=== PATIENT | female | born 1930 | race Caucasian/White ===

== ENCOUNTER → 2016-07-30 | Outpatient (CLI) | payer MEDICARE, BC ==
--- NOTE | 2016-07-30 10:25 | FL ---
ESOPHOGRAM. HISTORY: Dysphagia Esophagram was performed per the single technique. The patient swallowed thin liquid barium without difficulty or delay. Esophageal peristalsis and motility demonstrates tertiary contractions compatible with presbyesophag us. There is no evidence for filling defect, mass or diverticulum. Moderate fixed hiatal hernia. Subsequently single contrast cervical esophagram was performed which fails demonstrate evidence for a spiration penetration or mass. IMPRESSION: 1.Moderate fixed hiatal hernia.
== END | disposition home or self-care (01) ==
LOC: RADFLWHC 09:36
PROVIDERS: ATTEND Family Medicine
DX: K44.9 Diaphragmatic hernia without obstruction or gangrene (principal); R13.10 Dysphagia, unspecified
CPT/HCPCS: 74220

== ENCOUNTER 2016-08-15 12:53 | Emergency (ER) | payer MEDICARE, BC ==
--- NOTE | 2016-08-15 14:23 | ED ---
Fall HPI - General Chief Complaint: Fall Stated Complaint: FALL Time Seen by Provider: 08/15/16 13:39 Source: patient, EMS, RN notes reviewed Mode of arrival: EMS Limitations: no limitations - History of Present Illness Initial Comments: 86-year-old female presents emergency Department chief complaint fall. Patient states that she was reaching for something cover and which she fell backwards. She states there is no loss conscious. Patient went of headache she states she has a lump on the right side of her head. Patient states she does take aspirin no Plavix or any other blood thinners. Patient states that she did have some right ankle pain notes not painful at this time. Denies any hip pain or any back pain. Patient states she had some mild neck pain which is resolved. Patient is brought to emergency department via EMS. Family states that she is acting appropriate and has no other complaints. - Related Data Home Medications Medication Instructions Recorded Confirmed Cholecalciferol [Vitamin D3] 2,000 unit PO DAILY 01/24/16 08/15/16 Multivit-Min/FA/Lycopene/Lut 1 tab PO DAILY 01/24/16 08/15/16 [Centrum Silver Tablet] Vit C/E/Zn/Coppr/Lutein/Zeaxan 1 tab PO BID 01/24/16 08/15/16 [Preservision Areds 2 Softgel] Pantoprazole [Protonix] 40 mg PO HS 03/20/16 08/15/16 Aspirin 650 mg PO DAILY 08/15/16 08/15/16 Escitalopram Oxalate [Lexapro] 20 mg PO HS 08/15/16 08/15/16 Metoprolol Succinate (ER) [Toprol 50 mg PO DAILY 08/15/16 08/15/16 XL] Metoprolol Succinate [Toprol XL] 25 mg PO HS 08/15/16 08/15/16 Allergies Allergy/AdvReac Type Severity Reaction Status Date / Time iodine Allergy Unknown Verified 08/15/16 14:08 Penicillins Allergy Unknown Verified 08/15/16 14:08 shellfish derived [Shellfish] Allergy Unknown Verified 08/15/16 14:08 Review of Systems ROS Statement: Those systems with pertinent positive or pertinent negative responses have been documented in the HPI. ROS Other: All systems not noted in ROS Statement are negative. Past Medical History Past Medical History: Atrial Fibrillation, Cancer, Hypertension Additional Past Medical History / Comment(s): lung ca, meniere's, fracture to rt shoulder History of Any Multi-Drug Resistant Organisms: None Reported Past Surgical History: Appendectomy, Breast Surgery, Ear Surgery Additional Past Surgical History / Comment(s): left lower lobectomy, ovarian cyst, shoulder replacement Past Anesthesia/Blood Transfusion Reactions: No Reported Reaction Past Psychological History: No Psychological Hx Reported Smoking Status: Former smoker Past Alcohol Use History: None Reported Past Drug Use History: None Reported - Past Family History Father Family Medical History: Myocardial Infarction ([place]) Additional Family Medical History / Comment(s): father passed from an acute heart attack in his 70's Mother Family Medical History: Cancer Additional Family Medical History / Comment(s): mother passed at 34 with uterine cancer General Exam General appearance: alert, in no apparent distress Head exam: Present: atraumatic, normocephalic. Absent: normal inspection ( Hematoma noted to the right occipital region) Eye exam: Present: normal appearance, PERRL, EOMI. Absent: scleral icterus, conjunctival injection, periorbital swelling ENT exam: Present: normal exam, normal oropharynx, mucous membranes moist, TM's normal bilaterally, normal external ear exam Neck exam: Present: normal inspection. Absent: tenderness, meningismus, full ROM (Patient c-collar), lymphadenopathy Respiratory exam: Present: normal lung sounds bilaterally. Absent: respiratory distress, wheezes, rales, rhonchi, stridor Cardiovascular Exam: Present: regular rate, normal rhythm, normal heart sounds. Absent: systolic murmur, diastolic murmur, rubs, gallop, clicks GI/Abdominal exam: Present: soft, normal bowel sounds. Absent: distended, tenderness, guarding, rebound, rigid Extremities exam: Present: normal inspection, full ROM, tenderness (Minimal tenderness right ankle, right heel), normal capillary refill. Absent: pedal edema, joint swelling, calf tenderness Back exam: Present: normal inspection, full ROM. Absent: tenderness, muscle spasm, paraspinal tenderness, vertebral tenderness Neurological exam: Present: alert, oriented X3, CN II-XII intact, reflexes normal. Absent: motor sensory deficit Skin exam: Present: warm, dry, intact, normal color. Absent: rash Course Vital Signs 08/15/16 13:09 Temperature 96.9 F L Pulse Rate 76 Respiratory 16 Rate Blood Pressure 157/90 O2 Sat by Pulse 97 Oximetry Medical Decision Making - Medical Decision Making 86-year-old female presents emergency department for fall. Patient CT shows no acute abnormality. Patient's x-ray of her pelvis that show some constipation in the uterine region into needs a follow-up ultrasound or CT. Patient will follow with primary care physician for this. Patient x-ray of the lower extremity right ankle shows no acute abnormality. Disposition Clinical Impression: Fall, Head injury, Right ankle injury Disposition: HOME SELF-CARE Condition: Stable Instructions: Fall Prevention for Older Adults (ED), Head Injury (ED) Additional Instructions: Please return to the Emergency Department if symptoms worsen or any other concerns. Please follow-up with her primary care physician to schedule either a CT or ultrasound of the pelvic region. Time of Disposition: 15:19
--- NOTE | 2016-08-15 14:33 | CT ---
EXAMINATION TYPE: CT brain cspine wo con DATE OF EXAM: 08/15/2016 2:23 PM COMPARISON: Previous study dated 12/22/2015 HISTORY: Fall TECHNIQUE: Helical acquisition through the brain and cervical spine was obtained without intravenous contrast. The data was reformatted in axial, coronal and sagittal projections. CT DLP: 1295.50 mGycm Automated exposure control for dose reduction was used. FINDINGS: BRAIN: There are generalized changes of sulcal prominence and ventriculomegaly, compatible with atrop hic change. There is diffuse periventricular white matter lucency, compatible with white matter ische fabiola change. There is opacification of the right hemithorax. Prevertebral soft tissues are normal. There is anterolisthesis of C3 on C4. Alignment is otherwise maintained. Atlantoaxial relationships a re normal. There is diffuse uncovertebral joint disease most marked at C5-6 and C6-7. There is diffus e facet arthropathy. No acute fracture is identified. IMPRESSION: 1. NO ACUTE INTRACRANIAL ABNORMALITY. 2. ATROPHIC CHANGE. 3. CHRONIC WHITE MATTER ISCHEMIC CHANGE. 4. DEGENERATIVE CHANGES WITHIN THE CERVICAL SPINE. 5. NO ACUTE OSSEOUS LESION. 6. OPACIFICATION OF THE VISUALIZED PORTIONS OF THE RIGHT HEMITHORAX.
--- NOTE | 2016-08-15 15:09 | XR ---
EXAMINATION TYPE: XR pelvis AP view DATE OF EXAM: 08/15/2016 3:01 PM CLINICAL HISTORY: Generalized pelvic pain after fall injury. TECHNIQUE: A single AP view of the pelvis is obtained. COMPARISON: CT abdomen pelvis March 24, 2016. FINDINGS: The osseous structures are demineralized. There is no acute fracture/dislocation evident i n the pelvis. The sacroiliac joints appear symmetric and unremarkable. There is moderate to severe j oint space loss and spurring in the right hip joint with subchondral cystic change redemonstrated. Mo derate joint space loss without prominent spurring left hip joint is redemonstrated. There are opacif ied diverticula from recent swallow study seen in the visualized left and sigmoid colon. Gas and rect um is suspected. IMPRESSION: There is no acute fracture or dislocation in the pelvis. Note is made of abnormal promin ent central low-density in uterus for postmenopausal female on comparison CT, advise nonemergent pelv ic ultrasound follow-up or correlation.
--- NOTE | 2016-08-15 15:10 | XR ---
EXAMINATION TYPE: XR ankle complete RT DATE OF EXAM: 08/15/2016 3:00 PM CLINICAL HISTORY: Generalized pain after fall injury. TECHNIQUE: Frontal, lateral and oblique images of the right ankle are obtained. COMPARISON: None. FINDINGS: Osseous structures are demineralized. There is no acute fracture/dislocation evident in th e right ankle. Small inferior calcaneal spur is present. The ankle mortise appears within normal limi ts. The overlying soft tissue appears unremarkable. IMPRESSION: There is no acute fracture or dislocation in the right ankle.
[2016-08-15 15:30] VITALS: BP 168/80; PULSE 95; RESP 18; TEMP 97
== END 2016-08-15 15:32 | disposition home or self-care (01) ==
LOC: EC 12:53
DX: S09.90XA Unspecified injury of head, initial encounter (principal); S99.911A Unspecified injury of right ankle, initial encounter; W19.XXXA Unspecified fall, initial encounter; M54.2 Cervicalgia; Z79.82 Long term (current) use of aspirin; Z79.899 Other long term (current) drug therapy; I10 Essential (primary) hypertension; Z88.0 Allergy status to penicillin; Z91.013 Allergy to seafood; Z91.048 Other nonmedicinal substance allergy status; Z87.891 Personal history of nicotine dependence
CPT/HCPCS: 70450; 72125; 72170; 99284

== ENCOUNTER → 2016-08-24 | Outpatient (CLI) | payer MEDICARE, BC ==
[2016-08-24 10:01] LABS: Calcium 9.3 mg/dL (8.4-10.2); Total Protein 6.5 g/dL (6.3-8.2)
[2016-08-24 10:08] LABS: Potassium 3.1 mmol/L (3.5-5.1)
--- NOTE | 2016-08-24 10:10 | XR ---
EXAMINATION TYPE: XR chest 2V DATE OF EXAM: 08/24/2016 9:44 AM COMPARISON: 04/07/2016 HISTORY: Shortness of breath TECHNIQUE: Frontal and lateral views of the chest are obtained. FINDINGS: Scattered senescent parenchymal changes noted. Hyperinflation compatible with COPD. Stable pleural pa renchymal density throughout the left hemithorax. No evidence for infiltrate. No evidence for atelectasis. Heart size is enlarged. Mediastinal structures are stable and grossly unremarkable. No evidence for hilar prominence. Degenerative changes dorsal spine. IMPRESSION: 1. No evidence for acute pulmonary disease.
== END | disposition home or self-care (01) ==
LOC: LABWHC1 09:08
PROVIDERS: ATTEND Internal Medicine Cardiovascular Disease
DX: R06.02 Shortness of breath (principal); I50.40 Unspecified combined systolic (congestive) and diastolic (congestive) heart failure; R11.2 Nausea with vomiting, unspecified
CPT/HCPCS: 36415; 71020; 80053; 83880

== ENCOUNTER 2016-08-25 18:48 | Inpatient (IN) | payer MEDICARE, BC ==
[2016-08-25] MEDS ORDERED: SODIUM CHLORIDE 0.9% 1,000 ML IV STA (19:33)
--- NOTE | 2016-08-25 19:37 | ED ---
Nausea/Vomiting/Diarrhea HPI - General Chief complaint: Nausea/Vomiting/Diarrhea Stated complaint: N V D Time Seen by Provider: 08/25/16 19:01 Source: patient, RN notes reviewed Mode of arrival: EMS Limitations: no limitations - History of Present Illness Initial comments: Patient is an 86-year-old female presents to the emergency room for evaluation of shortness of breath, nausea and hallucinations. Patient's daughter is present with patient. Patient's daughter states that patient has been having issues with abdominal pain and "gagging" for the past few months. Patient's daughter states the patient has been following up with her primary care provider for this issue has been placed on different medications. Patient's daughter states that patient has had an endoscopy with no significant findings. Patient's daughter does admit that patient has a hiatal hernia that cannot be operated on, due to her age. Patient's daughter states that patient has not been eating anything for the past week. Patient's daughter states the patient has lost a lot of weight. Patient's daughter stated that patient has been complaining of intermittent chest pain and shortness of breath so she had blood work done yesterday as well as a chest x-ray. Patient's daughter states that patient was complaining of worsening shortness of breath today so they thought she should be evaluated in the emergency room. Patient also states that she has been seeing "figures". Patient states that she sees people walking in and out of her room and she goes reach her hand out to them and they disappear. Patient's daughter states that this has been going on for the past few weeks. Patient's daughter states that patient has been placed on various medications for this issue. Patient's daughter states that she started new medication about 3 days ago and has not been helping with the hallucinations. Patient denies pain or burning during urination, trouble urinating or blood in urine. Patient denies any current abdominal pain. Patient denies any current chest pain. Patient states she feels slightly short of breath. Patient does have a history of COPD. Patient denies currently smoking. Patient denies fevers or chills. - Related Data Home Medications Medication Instructions Recorded Confirmed Cholecalciferol [Vitamin D3] 2,000 unit PO DAILY 01/24/16 08/25/16 Multivit-Min/FA/Lycopene/Lut 1 tab PO DAILY 01/24/16 08/25/16 [Centrum Silver Tablet] Citalopram Hydrobromide [CeleXA] 40 mg PO DAILY 08/25/16 08/25/16 Cyanocobalamin (Vitamin B-12) 1,000 mcg PO DAILY 08/25/16 08/25/16 [Vitamin B-12] Gabapentin [Neurontin] 300 mg PO BID 08/25/16 08/25/16 Ibuprofen [Motrin] 800 mg PO Q6H PRN 08/25/16 08/25/16 SUMAtriptan SUCCINATE [Imitrex] 50 mg PO DAILY PRN 08/25/16 08/25/16 Temazepam [Restoril] 15 mg PO HS 08/25/16 08/25/16 Allergies Allergy/AdvReac Type Severity Reaction Status Date / Time iodine Allergy Unknown Verified 08/25/16 19:03 Penicillins Allergy Unknown Verified 08/25/16 19:03 shellfish derived [Shellfish] Allergy Unknown Verified 08/25/16 19:03 Review of Systems ROS Statement: Those systems with pertinent positive or pertinent negative responses have been documented in the HPI. ROS Other: All systems not noted in ROS Statement are negative. Past Medical History Past Medical History: Atrial Fibrillation, Cancer, Dementia, Hypertension Additional Past Medical History / Comment(s): lung ca, meniere's, fracture to rt shoulder History of Any Multi-Drug Resistant Organisms: None Reported Past Surgical History: Appendectomy, Breast Surgery, Ear Surgery Additional Past Surgical History / Comment(s): left lower lobectomy, ovarian cyst, shoulder replacement Past Anesthesia/Blood Transfusion Reactions: No Reported Reaction Past Psychological History: No Psychological Hx Reported Smoking Status: Former smoker Past Alcohol Use History: None Reported Past Drug Use History: None Reported - Past Family History Father Family Medical History: Myocardial Infarction ([place]) Additional Family Medical History / Comment(s): father passed from an acute heart attack in his 70's Mother Family Medical History: Cancer Additional Family Medical History / Comment(s): mother passed at 34 with uterine cancer General Exam - General Exam Comments Initial Comments: Sitting in exam room in no acute distress. Limitations: no limitations General appearance: alert, in no apparent distress Head exam: Present: atraumatic, normocephalic, normal inspection Eye exam: Present: normal appearance ENT exam: Present: normal exam Neck exam: Present: normal inspection Respiratory exam: Present: decreased breath sounds (left lung). Absent: respiratory distress Cardiovascular Exam: Present: irregular rhythm GI/Abdominal exam: Present: soft, normal bowel sounds. Absent: distended, tenderness, guarding, rebound, rigid Extremities exam: Present: normal inspection Back exam: Present: normal inspection Neurological exam: Present: alert, oriented X3, CN II-XII intact, normal gait Psychiatric exam: Present: normal affect, normal mood Skin exam: Present: warm, dry, intact, normal color. Absent: rash Course Vital Signs 08/25/16 08/25/16 08/25/16 19: 20:03 20:46 Temperature 96.9 F L Pulse Rate 98 88 88 Respiratory 18 20 20 Rate Blood Pressure 154/95 145/58 147/88 O2 Sat by Pulse 90 L 94 L 98 Oximetry 08/25/16 22:31 Temperature 98.0 F Pulse Rate 93 Respiratory 18 Rate Blood Pressure 129/82 O2 Sat by Pulse 97 Oximetry Medical Decision Making - Medical Decision Making Patient is 86-year-old female presents to the emergency room for evaluation of shortness of breath and nausea. Labs significant for hypokalemia. Patient will be given potassium. Case discussed with Dr. Villanueva. Given patient's history and symptoms will admit patient for further evaluation of shortness of breath and hyperkalemia. Dr. Villanueva spoke with Dr. Ward who agreed to admit patient. Plan discussed with patient and her family. - Lab Data Result diagrams: 08/25/16 19:08/25/16 19:01 Lab Results 08/25/16 08/25/16 08/25/16 Range/Units 19: 19: 19: WBC 5.6 (3.8-10.6) k/uL RBC 3.94 (3.80-5.40) m/uL Hgb 12.2 (11.4-16.0) gm/dL Hct 37.8 (34.0-46.0) % MCV 95.9 (80.0-100.0) fL MCH 30.9 (25.0-35.0) pg MCHC 32.3 (31.0-37.0) g/dL RDW 15.7 H (11.5-15.5) % Plt Count 220 (150-450) k/uL Neutrophils % 58 % Lymphocytes % 29 % Monocytes % 5 % Eosinophils % 5 % Basophils % 1 % Neutrophils # 3.2 (1.3-7.7) k/uL Lymphocytes # 1.6 (1.0-4.8) k/uL Monocytes # 0.3 (0-1.0) k/uL Eosinophils # 0.3 (0-0.7) k/uL Basophils # 0.0 (0-0.2) k/uL PT (9.0-12.0) sec INR (<1.1) APTT (22.0-30.0) sec Sodium 141 (137-145) mmol/L Potassium 2.6 L* (3.5-5.1) mmol/L Chloride 101 (98-107) mmol/L Carbon Dioxide 29 (22-30) mmol/L Anion Gap 11 mmol/L BUN 18 H (7-17) mg/dL Creatinine 0.91 (0.52-1.04) mg/dL Est GFR (MDRD) Af Amer >60 (>60 ml/min/1.73 sqM) Est GFR (MDRD) Non-Af 59 (>60 ml/min/1.73 sqM) Glucose 84 (74-99) mg/dL Calcium 8.9 (8.4-10.2) mg/dL Magnesium 1.9 (1.6-2.3) mg/dL Total Bilirubin 1.4 H (0.2-1.3) mg/dL AST 17 (14-36) U/L ALT 15 (9-52) U/L Alkaline Phosphatase 66 (38-126) U/L Total Creatine Kinase 21 L (30-135) U/L CK-MB (CK-2) 0.3 (0.0-2.4) ng/mL CK-MB (CK-2) Rel Index 1.4 Troponin I <0.012 (0.000-0.034) ng/mL NT-Pro-B Natriuret Pep pg/mL Total Protein 6.3 (6.3-8.2) g/dL Albumin 3.0 L (3.5-5.0) g/dL Amylase 57 (30-110) U/L Lipase 39 (23-300) U/L 08/25/16 08/25/16 Range/Units 19:01 19:01 WBC (3.8-10.6) k/uL RBC (3.80-5.40) m/uL Hgb (11.4-16.0) gm/dL Hct (34.0-46.0) % MCV (80.0-100.0) fL MCH (25.0-35.0) pg MCHC (31.0-37.0) g/dL RDW (11.5-15.5) % Plt Count (150-450) k/uL Neutrophils % % Lymphocytes % % Monocytes % % Eosinophils % % Basophils % % Neutrophils # (1.3-7.7) k/uL Lymphocytes # (1.0-4.8) k/uL Monocytes # (0-1.0) k/uL Eosinophils # (0-0.7) k/uL Basophils # (0-0.2) k/uL PT 11.8 (9.0-12.0) sec INR 1.2 (<1.1) APTT 30.7 H (22.0-30.0) sec Sodium (137-145) mmol/L Potassium (3.5-5.1) mmol/L Chloride (98-107) mmol/L Carbon Dioxide (22-30) mmol/L Anion Gap mmol/L BUN (7-17) mg/dL Creatinine (0.52-1.04) mg/dL Est GFR (MDRD) Af Amer (>60 ml/min/1.73 sqM) Est GFR (MDRD) Non-Af (>60 ml/min/1.73 sqM) Glucose (74-99) mg/dL Calcium (8.4-10.2) mg/dL Magnesium (1.6-2.3) mg/dL Total Bilirubin (0.2-1.3) mg/dL AST (14-36) U/L ALT (9-52) U/L Alkaline Phosphatase (38-126) U/L Total Creatine Kinase (30-135) U/L CK-MB (CK-2) (0.0-2.4) ng/mL CK-MB (CK-2) Rel Index Troponin I (0.000-0.034) ng/mL NT-Pro-B Natriuret Pep 4850 pg/mL Total Protein (6.3-8.2) g/dL Albumin (3.5-5.0) g/dL Amylase (30-110) U/L Lipase (23-300) U/L 08/25/16 21:22 Atrial fibrillation, ventricular rate 90 bpm, QRS duration 86 ms, QT/QTC 414/ 506 ms - Radiology Data Radiology results: report reviewed, image reviewed Disposition Clinical Impression: Hypokalemia, Shortness of breath Disposition: ADMITTED IP TO THIS [facility] Condition: Stable Decision Date: 08/25/16
[2016-08-25 19:52] LABS: Basophils % (A) 1 %; CH 31.5; CHCM 33.1; Eosinophils # (A) 0.3 k/uL (0-0.7); Eosinophils % (A) 5 %; HCT 37.8 % (34.0-46.0); HGB 12.2 gm/dL (11.4-16.0); Luc # (Auto) 0.16; Luc % (Auto) 3; Lymphocytes # (A) 1.6 k/uL (1.0-4.8); Lymphocytes % (A) 29 %; MCH 30.9 pg (25.0-35.0); MCHC 32.3 g/dL (31.0-37.0); MCV 95.9 fL (80.0-100.0); Mean Platelet Volume 7.8; Monocytes # (A) 0.3 k/uL (0-1.0); Monocytes % (A) 5 %; Neutrophils # (A) 3.2 k/uL (1.3-7.7); Neutrophils % (A) 58 %; RBC 3.94 m/uL (3.80-5.40); RDW 15.7 % (11.5-15.5); WBC 5.6 k/uL (3.8-10.6); WBC (Perox) 5.74
[2016-08-25 20:02] LABS: INR 1.2 (<1.1); Partial Thromboplastin Time 30.7 sec (22.0-30.0); Prothrombin Time 11.8 sec (9.0-12.0)
[2016-08-25 20:03] LABS: ALT 15 U/L (9-52); AST 17 U/L (14-36); Alkaline Phosphatase 66 U/L (38-126); Amylase 57 U/L (30-110); Anion Gap 11 mmol/L; Blood Urea Nitrogen 18 mg/dL (7-17); Calcium 8.9 mg/dL (8.4-10.2); Carbon Dioxide 29 mmol/L (22-30); Chloride 101 mmol/L (98-107); Glucose 84 mg/dL (74-99); Magnesium 1.9 mg/dL (1.6-2.3); Non-African American GFR(MDRD) 59 (>60 ml/min/1.73 sqM); Sodium 141 mmol/L (137-145); Total Bilirubin 1.4 mg/dL (0.2-1.3); Total Protein 6.3 g/dL (6.3-8.2)
--- NOTE | 2016-08-25 20:17 | XR ---
EXAMINATION TYPE: XR chest 2V DATE OF EXAM: 08/25/2016 8:11 PM COMPARISON: 08/24/2016 INDICATION: Chest pain TECHNIQUE: Single frontal view of the chest is obtained. FINDINGS: The heart size is enlarged. The pulmonary vasculature is prominent. Diffuse alveolar infiltrate is present. A small left pleural effusion appears to be present. Findings appear stable. Hiatal hernia is present. IMPRESSION: 1. Correlate for congestive heart failure. Continued follow-up is recommended.
[2016-08-25 20:18] LABS: Creatine Kinase 21 U/L (30-135)
[2016-08-25 20:19] LABS: Potassium 2.6 mmol/L (3.5-5.1)
[2016-08-25 20:32] LABS: Creatine Kinase MB 0.3 ng/mL (0.0-2.4); Troponin I <0.012 ng/mL (0.000-0.034)
[2016-08-25] MEDS ORDERED: POTASSIUM CHLORIDE 40 MEQ in WATER FOR INJECTION 1 100ML.BAG IVPB STA (20:34)
[2016-08-25] MEDS ORDERED: POTASSIUM CHLORIDE 40 MEQ, LIDOCAINE 2% INJ 20 MG in SODIUM CHLORIDE 0.9% 250 ML IV STA (20:37)
[2016-08-25] MEDS ORDERED: NALOXONE 0.4 MG/ML 1 ML VIAL IV PRN (20:40)
[2016-08-25] MEDS ORDERED: MORPHINE SULFATE 4 MG/ML SYRINGE IV PRN (20:40)
[2016-08-25] MEDS ORDERED: ONDANSETRON 4 MG/2 ML VIAL IVP PRN (20:40)
[2016-08-25] MEDS ORDERED: ACETAMINOPHEN TAB 325 MG TAB PO PRN (20:40)
[2016-08-25] MEDS ORDERED: IBUPROFEN 800 MG TAB PO PRN (20:48)
[2016-08-25] MEDS ORDERED: SUMAtriptan SUCCINATE 50 MG TAB PO PRN (20:48)
[2016-08-25] MEDS: SODIUM CHLORIDE 0.9% 1,000 ML IV SCH (21:00)
[2016-08-25] MEDS ORDERED: Potassium Replacement Protocol 1 EACH MISC MISCELLANE PRN (23:25)
[2016-08-25 23:43] LABS: Glucose,Whole Blood 77 mg/dL (75-99)
[2016-08-26 00:43] LABS: Appearance,Urine Cloudy (Clear); Bacteria,Urine Many /hpf; Bilirubin,Urine Negative (Negative); Glucose,Urine (UA) Negative (Negative); Ketones,Urine Negative (Negative); Leukocyte Esterase,Urine Moderate (Negative); Mucus,Urine Many /hpf; Nitrite,Urine Negative (Negative); PH, Urine 6.5 (5.0-8.0); Particle Count 114482; Protein,Urine Trace (Negative); RBC,Urine 1 /hpf (0-5); Specific Gravity,Urine 1.012 (1.001-1.035); Squamous Epithelial Cell,Urine 3 /hpf (0-4); UA Billing (MACRO vs. MICRO) MICRO; WBC,Urine 17 /hpf (0-5)
[2016-08-26] MEDS: TEMAZEPAM 15 MG CAP PO SCH ×2 (01:12→20:17)
[2016-08-26] MEDS: GABAPENTIN 300 MG CAP PO SCH ×3 (01:12→20:17)
[2016-08-26 03:48] LABS: Magnesium 1.8 mg/dL (1.6-2.3); Phosphorous 2.8 mg/dL (2.5-4.5)
[2016-08-26 03:50] LABS: Potassium 2.8 mmol/L (3.5-5.1)
[2016-08-26] MEDS: LEVOFLOXACIN 500MG-D5W PMX 500 MG in DEXTROSE/WATER 1 100ML.BAG IVPB SCH ×2 (04:06→20:09)
[2016-08-26] MEDS: POTASSIUM CHLORIDE 10 MEQ, LIDOCAINE 2% INJ 10 MG in SODIUM CHLORIDE 0.9% 100 ML IV SCH ×2 (04:06→05:18)
[2016-08-26] MEDS: CITALOPRAM HYDROBROMIDE 20 MG TAB PO SCH (08:18)
[2016-08-26] MEDS: CHOLECALCIFEROL 1,000 UNIT TAB PO SCH (08:18)
[2016-08-26] MEDS: CYANOCOBALAMIN 500 MCG TAB PO SCH (08:18)
[2016-08-26] MEDS: MULTIVITAMINS, THERA 1 EACH TAB PO SCH (08:18)
[2016-08-26 11:44] LABS: Glucose,Whole Blood 73 mg/dL (75-99)
[2016-08-26] MEDS: SODIUM CHLORIDE 0.9% 1,000 ML IV SCH (12:32)
[2016-08-26 17:23] LABS: Glucose,Whole Blood 67 mg/dL (75-99)
[2016-08-26 17:57] LABS: Glucose,Whole Blood 74 mg/dL (75-99)
[2016-08-26 21:30] LABS: Glucose,Whole Blood 106 mg/dL (75-99)
[2016-08-27] MEDS: SODIUM CHLORIDE 0.9% 1,000 ML IV SCH ×2 (05:01→17:44)
[2016-08-27 07:08] LABS: Glucose,Whole Blood 84 mg/dL (75-99)
[2016-08-27 08:27] LABS: CH 30.7; HCT 36.4 % (34.0-46.0); HDW 2.89; HGB 11.5 gm/dL (11.4-16.0); Hypochromasia Slight; MCH 31.7 pg (25.0-35.0); MCHC 31.7 g/dL (31.0-37.0); MCV 99.9 fL (80.0-100.0); Macrocytosis Slight; Mean Platelet Volume 7.8; RBC 3.64 m/uL (3.80-5.40); RDW 15.8 % (11.5-15.5); WBC 5.8 k/uL (3.8-10.6)
[2016-08-27 08:36] LABS: Anion Gap 8 mmol/L; Blood Urea Nitrogen 18 mg/dL (7-17); Calcium 9.1 mg/dL (8.4-10.2); Carbon Dioxide 28 mmol/L (22-30); Chloride 107 mmol/L (98-107); Glucose 82 mg/dL (74-99); Non-African American GFR(MDRD) 55 (>60 ml/min/1.73 sqM); Potassium 3.3 mmol/L (3.5-5.1); Sodium 143 mmol/L (137-145)
--- NOTE | 2016-08-27 08:47 | HP ---
DATE OF ADMISSION: 08/26/2016 This is a pleasant, 86-year-old white female who was admitted for problems with 3 days of burning during urination, trouble urination, confusion, increasing level of consciousness with hallucinations. The patient was recently started on Seroquel at bedtime for hallucinations, which seem to be a complication of her dementia. She has been having intermitting complaints of gagging due to a hiatal hernia which is unrepairable because of advanced age. Patient's only been on 3 days of the Seroquel. Her past medical history is significant for dementia, congestive heart failure, hypertension, atrial fibrillation, lung cancer, Meniere's disease with falls, fracture of her right humerus. PAST SURGICAL HISTORY: Breast surgery, appendectomy, left lower lobectomy, ovarian cyst, shoulder replacement. SOCIAL: Former smoker. Denies any alcohol or drugs. REVIEW OF SYSTEMS: Unable to obtain secondary to the patient's confusion. HOME MEDICATIONS: 1. Vitamin D. 2. Centrum Silver. 3. Celexa 40 mg once daily. 4. Vitamin B 1000 once daily. 5. Neurontin 300 b.i.d. 6. Motrin 800 q.6. 7. Imitrex 50 once daily. 8. Restoril 15 at bedtime. Allergies to IODINE, PENICILLINS, and SHELLFISH. Family history of father of a heart attack. Mother had cancer of the uterus. PHYSICAL EXAMINATION: Patient is awake. She is answering questions, she is confused at times to place and time. HEAD: Normocephalic and atraumatic. Neck is supple. No JVD. LUNGS: Clear to auscultation. HEART: Irregular irregularity with controlled ventricular response. GI: Abdominal was soft, nontender. EXTREMITIES: No cyanosis, clubbing or jaundice. NEUROLOGIC: Cranial nerves 2 through 12 are grossly intact without any lateralizing deficits. IMPRESSION: 1. Acute urinary tract infection. 2. Significant hypokalemia. 3. Alzheimer's dementia with visual hallucinations, recently placed on Seroquel but has discontinued only after 3 days. 4. Hiatal hernia with progressive problems with gagging/dysphagia. Patient was unable to anticoagulate because of gastrointestinal bleeding. PLAN: Admit patient. IV antibiotics. She may need psychiatric consultation. Will see how she does in the hospital. Will replace her potassium. Will continue to follow patient's overall guarded prognosis.
[2016-08-27] MEDS: CHOLECALCIFEROL 1,000 UNIT TAB PO SCH (08:49)
[2016-08-27] MEDS: CYANOCOBALAMIN 500 MCG TAB PO SCH (08:50)
[2016-08-27] MEDS: CITALOPRAM HYDROBROMIDE 20 MG TAB PO SCH (08:51)
[2016-08-27] MEDS: GABAPENTIN 300 MG CAP PO SCH ×2 (08:51→20:58)
--- NOTE | 2016-08-27 09:46 | P.CRDCN ---
History of Present Illness Consult date: 08/27/16 Consult reason: atrial fibrillation History of present illness: 86-year-old lady with history of chronic atrial fibrillation and mild dementia is admitted to hospital with a combination of problems including nausea vomiting and burning urination and episodes of hallucinations. Patient denies chest pain difficulty in breathing dizziness or syncope. She has not been taking anticoagulant. Based on her history I think she is a poor risk candidate for long-term anticoagulation. The time of my evaluation she is not in heart failure. Her confusional state is currently being evaluated. I reviewed her EKG. I'm going to obtain a 2-D echo to document her LV function. Review of Systems Constitutional: Denies chills. Denies fever. Eyes: Denies blurred vision. Denies pain. Ears, nose, mouth and throat: Denies headache. Denies sore throat. Cardiovascular: Denies chest pain. Denies shortness of breath. Respiratory: Denies cough. Gastrointestinal: Has nausea vomiting and diarrhea Musculoskeletal: Denies myalgias. Has joint pains Integumentary: Denies pruritus. Denies rash. Neurological: Denies numbness. Denies weakness. Psychiatric: Denies anxiety. Denies depression. Patient has hallucinations confusion and memory impairment Endocrine: Denies fatigue. Denies weight change. Genitourinary: Denies burning, hematuria, frequency of urination. Hematological: No anemia or excess bleeding. Past Medical History Past Medical History: Atrial Fibrillation, Cancer, Dementia, Hypertension Additional Past Medical History / Comment(s): lung ca, meniere's, fracture to rt shoulder History of Any Multi-Drug Resistant Organisms: None Reported Past Surgical History: Appendectomy, Breast Surgery, Ear Surgery Additional Past Surgical History / Comment(s): left lower lobectomy, ovarian cyst, shoulder replacement Past Anesthesia/Blood Transfusion Reactions: No Reported Reaction Past Psychological History: No Psychological Hx Reported Smoking Status: Former smoker Past Alcohol Use History: None Reported Past Drug Use History: None Reported - Past Family History Father Family Medical History: Myocardial Infarction ([place]) Additional Family Medical History / Comment(s): father passed from an acute heart attack in his 70's Mother Family Medical History: Cancer Additional Family Medical History / Comment(s): mother passed at 34 with uterine cancer Medications and Allergies Home Medications Medication Instructions Recorded Confirmed Type Cholecalciferol [Vitamin D3] 2,000 unit PO DAILY 01/24/16 08/25/16 History Multivit-Min/FA/Lycopene/Lut 1 tab PO DAILY 01/24/16 08/25/16 History [Centrum Silver Tablet] Citalopram Hydrobromide [CeleXA] 40 mg PO DAILY 08/25/16 08/25/16 History Cyanocobalamin (Vitamin B-12) 1,000 mcg PO DAILY 08/25/16 08/25/16 History [Vitamin B-12] Gabapentin [Neurontin] 300 mg PO BID 08/25/16 08/25/16 History Ibuprofen [Motrin] 800 mg PO Q6H PRN 08/25/16 08/25/16 History SUMAtriptan SUCCINATE [Imitrex] 50 mg PO DAILY PRN 08/25/16 08/25/16 History Temazepam [Restoril] 15 mg PO HS 08/25/16 08/25/16 History Allergies Allergy/AdvReac Type Severity Reaction Status Date / Time iodine Allergy Unknown Verified 08/25/16 19:03 Penicillins Allergy Unknown Verified 08/25/16 19:03 shellfish derived [Shellfish] Allergy Unknown Verified 08/25/16 19:03 Physical Exam Vitals: Vital Signs Temp Pulse Resp BP Pulse Ox 08/27/16 07:00 97.7 F 90 18 132/79 98 08/26/16 22:38 97.4 F L 81 16 98/62 94 L 08/26/16 16:05 97.3 F L 88 18 103/66 99 08/26/16 16:00 83 16 Intake and Output 08/26/16 08/27/16 08/27/16 22:59 06:59 14:59 Output Total 100 100 Balance -100 -100 Output: Urine 100 100 Other: Voiding Method Bedside Commode Diaper # Voids 1 1 # Bowel Movements 1 Weight 56.5 kg 56 kg General: The patient is awake and alert, in no distress, and does not appear acutely ill. Skin: Skin is warm and dry and no rashes or lesions are noted. Eye: Pupils are equal, round and reactive to light, extra-ocular movements are intact; there is normal conjunctiva bilaterally. Ears, nose, mouth and throat: There are moist mucous membranes and no oral lesions. Neck: The neck is supple, there is no tenderness or JVD. Cardiovascular: Irregular systolic murmur at the left lower sternal border Respiratory: Lungs are clear to auscultation, respirations are non-labored, breath sounds are equal. Gastrointestinal: Soft, non-distended, non-tender abdomen without masses or organomegaly noted. There is no rebound or guarding present. Bowel sounds are unremarkable. Back: There is no tenderness to palpation in the midline. There is no obvious deformity. Musculoskeletal: Normal ROM, no tenderness, There is no pedal edema. There is no calf tenderness or swelling. Extremities: No edema. Vascular: Femoral pulse is normal. Posterior tibial pulses are normal .Dorsalis pedis is palpable. Neurological: CN II-XII intact. There are no obvious motor or sensory deficits. Speech is normal. Psychiatric: Cooperative, recently confused Results 08/27/16 08:03 08/27/16 08:03 CBC 08/27/16 Range/Units 08:03 WBC 5.8 (3.8-10.6) k/uL RBC 3.64 L (3.80-5.40) m/uL Hgb 11.5 (11.4-16.0) gm/dL Hct 36.4 (34.0-46.0) % Plt Count 204 (150-450) k/uL Comprehensive Metabolic Panel 08/26/16 08/27/16 Range/Units 08:37 08:03 Sodium 143 (137-145) mmol/L Potassium 3.6 3.3 L (3.5-5.1) mmol/L Chloride 107 (98-107) mmol/L Carbon Dioxide 28 (22-30) mmol/L BUN 18 H (7-17) mg/dL Creatinine 0.96 (0.52-1.04) mg/dL Glucose 82 (74-99) mg/dL Calcium 9.1 (8.4-10.2) mg/dL Current Medications Generic Name Dose Route Start Last Admin Trade Name Freq PRN Reason Stop Dose Admin Acetaminophen 650 mg 08/25/16 20:40 Tylenol Tab PO Q6HR PRN Mild Pain or Fever > 100.5 Cholecalciferol 2,000 unit 08/26/16 09:00 08/27/16 08:49 Vitamin D3 PO 2,000 unit DAILY KALEN Administration Citalopram Hydrobromide 40 mg 08/26/16 09:00 08/27/16 08:51 Celexa PO 40 mg DAILY KALEN Administration Cyanocobalamin 1,000 mcg 08/26/16 09:00 08/27/16 08:50 Vitamin B-12 PO 1,000 mcg DAILY KALEN Administration Gabapentin 300 mg 08/25/16 23:50 08/27/16 08:51 Neurontin PO 300 mg BID KALEN Administration Sodium Chloride 1,000 mls @ 75 mls/hr 08/25/16 20:45 08/27/16 05:01 Saline 0.9% IV Not Given .[id number] KALEN Levofloxacin 500 mg/ IV 100 mls @ 100 mls/hr 08/26/16 03:15 08/26/16 20:09 Solution IVPB 100 mls/hr HS KALEN Administration Ibuprofen 800 mg 08/25/16 20:48 Motrin PO Q6H PRN Pain Miscellaneous Information 1 each 08/25/16 23:25 Potassium Per Protocol MISCELLANE DAILY PRN Per Protocol Protocol Morphine Sulfate 4 mg 08/25/16 20:40 Morphine Sulfate (Inj) IV Q4HR PRN Severe Pain Multivitamins 1 each 08/26/16 12:00 08/26/16 08:18 Theragran PO 1 each DAILY@1200 KALEN Administration Naloxone HCl 0.2 mg 08/25/16 20:40 Narcan IV Q2M PRN Opioid Reversal Ondansetron HCl 4 mg 08/25/16 20:40 Zofran IVP Q8HR PRN Nausea And Vomiting Sumatriptan Succinate 50 mg 08/25/16 20:48 Imitrex PO DAILY PRN Migraine Headache Temazepam 15 mg 08/25/16 21:00 08/26/16 20:17 Restoril PO 15 mg HS KALEN Administration Intake and Output 08/26/16 08/27/16 08/27/16 22:59 06:59 14:59 Output Total 100 100 Balance -100 -100 Output: Urine 100 100 Other: Voiding Method Bedside Commode Diaper # Voids 1 1 # Bowel Movements 1 Weight 56.5 kg 56 kg 08/27/16 08:03 08/27/16 08:03 EKG Interpretations (text) Atrial fibrillation with nonspecific ST-T wave changes Assessment and Plan Plan: Chronic atrial fibrillation with controlled ventricular rate Confusional state Patient is not a candidate for long-term anticoagulation. Heart rate is fairly well controlled. I will obtain a 2-D echo to assess LV function.
[2016-08-27 11:50] LABS: Glucose,Whole Blood 91 mg/dL (75-99)
[2016-08-27] MEDS: MULTIVITAMINS, THERA 1 EACH TAB PO SCH (12:12)
[2016-08-27] MEDS ORDERED: Potassium Replacement Protocol 1 EACH MISC MISCELLANE PRN (13:55)
--- NOTE | 2016-08-27 14:01 | P.PN ---
Subjective Principal diagnosis: Urinary tract infection Patient is an 86-year-old white female admitted with evidence of increased confusion with hallucinations, urinary tract infection, possible congestive heart failure with elevated BNP and complaints of gagging secondary to unrepairable hiatal hernia. Cardiology has been consulted for possible congestive heart failure, echocardiogram pending. Psychiatry consult requested , recommendations pending. Upon examination, patient is oriented and alert. Patient reports that she has been short of breath for one week and that it was getting hard for her to get in and out of bed without experiencing shortness of breath. Patient complains of leg swelling for approximately one week. Patient currently denies chills, fevers, nausea, vomiting, shortness of breath, chest pain, or abdominal pain. Patient reports good appetite. Patient was able to get up to the commode with assist. Patient had a bowel movement this morning. Afebrile. No evidence of leukocytosis. Potassium is 3.3 this morning. Urine cultures pending. Objective - Vital Signs Vital signs: Vital Signs Temp 97.7 F 08/27/16 07:00 Pulse 90 08/27/16 07:00 Resp 18 08/27/16 07:00 BP 132/79 08/27/16 07:00 Pulse Ox 98 08/27/16 07:00 Intake & Output 08/26/16 08/27/16 08/27/16 18:59 06:59 18:59 Intake Total 619 Output Total 200 100 100 Balance 419 -100 -100 Weight 56.5 kg 56 kg 56 kg Intake: Intake, IV Titration 619 Amount Sodium Chloride 0.9% 1, 619 000 ml @ 75 mls/hr IV . [id number] [facility] Rx#:[id number] Output: Urine 200 100 100 Other: Voiding Method Bedside Commode Bedside Commode Bedside Commode Diaper Diaper # Voids 2 1 1 # Bowel Movements 1 1 - Exam GENERAL: Pt awake and alert, well-appearing, well-nourished, and in no acute distress. HEAD: Atraumatic, normocephalic. EYES: Pupils equal, round, and reactive to light, extraocular movements intact, sclera anicteric, conjunctiva are normal. ENT: Oropharynx clear without exudates. Moist mucous membranes. Tongue smooth, pink, no lesions, protrudes in midline. NECK:Normal range of motion, supple without lymphadenopathy or JVD. LUNGS: Breath sounds clear to auscultation bilaterally. Irregularly irregular. No wheezes, rales, or rhonchi. HEART: Heart S1, S2, no S3 or S4. No murmurs, rubs or gallops. ABDOMEN: Soft, nontender, nondistended, normoactive bowel sounds. No guarding, no rebound. No masses or organomegaly appreciated. EXTREMITIES: palpable peripheral pulses. 1+ edema to bilateral lower extremities. No calf tenderness. NEUROLOGICAL: Pt oriented to person, place and time. No focal deficits noted. Strength and sensation grossly intact. PSYCH: Normal mood, normal affect. SKIN: Warm, dry, intact. Normal turgor. No rashes or lesions. - Labs CBC & Chem 7: 08/27/16 08:03 08/27/16 08:03 Labs: Abnormal Lab Results - Last 24 Hours (Table) 08/26/16 08/26/16 08/26/16 Range/Units 17:21 17:47 21:09 RBC (3.80-5.40) m/uL RDW (11.5-15.5) % Potassium (3.5-5.1) mmol/L BUN (7-17) mg/dL POC Glucose (mg/dL) 67 L 74 L 106 H (75-99) mg/dL 08/27/16 08/27/16 Range/Units 08:03 08:03 RBC 3.64 L (3.80-5.40) m/uL RDW 15.8 H (11.5-15.5) % Potassium 3.3 L (3.5-5.1) mmol/L BUN 18 H (7-17) mg/dL POC Glucose (mg/dL) (75-99) mg/dL Microbiology - Last 24 Hours (Table) 08/26/16 18:06 Urine Culture - Preliminary Urine,Clean Catch Assessment and Plan Plan: Impression and plan: 1. Urinary tract infection, urine cultures pending. Continue IV antibiotics. 2. Hypokalemia. Replace potassium per protocol. Will check serum magnesium. 3. Alzheimer's dementia with visual hallucinations, recently placed on Seroquel but was discontinued after 3 days. Consult has been initiated to psychiatric service, recommendations pending. 4. Hiatal hernia with progressive problems with gagging and dysphagia. Speech therapy has been consulted. 5. Persistent atrial fibrillation, ventricular rate controlled. Patient is not on any anticoagulation secondary to history of GI bleed. 6. Shortness of breath, present on admission, with evidence of elevated BNP and bilateral leg swelling. Chest x-ray with evidence of diffuse alveolar infiltrate and small left pleural effusion suggestive of possible CHF. Cardiology has seen and evaluated patient. No plans for diuretics at this time. Echocardiogram pending. 7. Hypertension. 8. History of lung cancer with left lower lobectomy. 9. History of Mnire's disease. 10. History of nicotine dependence. 11. Gait dysfunction. Patient uses walker at home. Consult physical therapy. 12. DVT prophylaxis. Continue FELISA hose to bilateral lower extremities. 13. GI prophylaxis. Continue Pepcid. 14. Repeat CBC and BMP in a.m. The above impression and plan have been discussed and directed by Dr. Ward. Sparkle ALY acting as scribe for Dr. Ward.
[2016-08-27] MEDS ORDERED: POTASSIUM CHLORIDE 10 MEQ, LIDOCAINE 2% INJ 10 MG in SODIUM CHLORIDE 0.9% 100 ML IV SCH (15:00)
[2016-08-27 17:12] LABS: Glucose,Whole Blood 87 mg/dL (75-99)
[2016-08-27 20:51] LABS: Glucose,Whole Blood 90 mg/dL (75-99)
[2016-08-27] MEDS: TEMAZEPAM 15 MG CAP PO SCH (20:59)
[2016-08-27] MEDS: QUEtiapine 25 MG TAB PO SCH (20:59)
[2016-08-27] MEDS: LEVOFLOXACIN 250 MG TAB PO SCH (20:59)
[2016-08-27 23:24] VITALS: RESP 16
[2016-08-28] MEDS: SODIUM CHLORIDE 0.9% 1,000 ML IV SCH ×2 (05:47→09:42)
[2016-08-28 07:21] LABS: Glucose,Whole Blood 80 mg/dL (75-99)
[2016-08-28 07:28] LABS: Basophils % (A) 0 %; CH 30.4; CHCM 30.1; Eosinophils # (A) 0.3 k/uL (0-0.7); Eosinophils % (A) 7 %; HCT 33.2 % (34.0-46.0); HGB 10.1 gm/dL (11.4-16.0); Hypochromasia Marked; Luc # (Auto) 0.11; Luc % (Auto) 3; Lymphocytes # (A) 1.2 k/uL (1.0-4.8); Lymphocytes % (A) 30 %; MCH 31.1 pg (25.0-35.0); MCHC 30.6 g/dL (31.0-37.0); MCV 101.7 fL (80.0-100.0); Macrocytosis Slight; Monocytes # (A) 0.3 k/uL (0-1.0); Monocytes % (A) 8 %; Neutrophils # (A) 1.9 k/uL (1.3-7.7); Neutrophils % (A) 51 %; RBC 3.26 m/uL (3.80-5.40); RDW 15.6 % (11.5-15.5); WBC 3.8 k/uL (3.8-10.6); WBC (Perox) 3.95
[2016-08-28 07:42] LABS: Magnesium 1.8 mg/dL (1.6-2.3); Potassium 3.8 mmol/L (3.5-5.1)
[2016-08-28] MEDS ORDERED: Magnesium Replacement Protocol 1 EACH MISC MISCELLANE PRN (08:28)
[2016-08-28] MEDS ORDERED: POTASSIUM CHLORIDE ORAL LIQUID 40 MEQ/30 ML CUP PO ONE (08:30)
[2016-08-28] MEDS: CITALOPRAM HYDROBROMIDE 20 MG TAB PO SCH (09:27)
[2016-08-28] MEDS: CHOLECALCIFEROL 1,000 UNIT TAB PO SCH (09:27)
[2016-08-28] MEDS: CYANOCOBALAMIN 500 MCG TAB PO SCH (09:27)
[2016-08-28] MEDS: FAMOTIDINE 20 MG TAB PO SCH (09:28)
[2016-08-28] MEDS: GABAPENTIN 300 MG CAP PO SCH ×2 (09:28→20:22)
[2016-08-28] MEDS: MAGNESIUM SULFATE-D5W PMX 1 GM in DEXTROSE/WATER 1 100ML.BAG IVPB SCH ×2 (09:42→11:53)
--- NOTE | 2016-08-28 10:17 | P.PN ---
Subjective Principal diagnosis: Urinary tract infection Patient is an 86-year-old white female admitted with evidence of increased confusion with hallucinations, possible urinary tract infection, possible congestive heart failure with elevated BNP and complaints of gagging secondary to unrepairable hiatal hernia. Cardiology has been consulted for possible congestive heart failure, echocardiogram pending. Psychiatry consult requested , recommendations pending. Upon examination, patient is sitting up in a chair. Nursing staff reports that patient was a 2 person assist to the chair this morning and patient was dragging her left foot. Nursing staff also reports that patient's left arm is weaker than her right arm. Nursing staff reports that per family, patient does have left-sided weakness but it appears worse than usual. Patient reports improvement in breathing. Patient currently denies headache, chills, fevers, nausea, vomiting, increased shortness of breath , chest pain, or abdominal pain. Patient reports good appetite. Objective - Vital Signs Vital signs: Vital Signs Temp 97.3 F L 08/28/16 08:25 Pulse 92 08/28/16 08:25 Resp 16 08/28/16 08:25 BP 115/77 08/28/16 08:25 Pulse Ox 98 08/28/16 08:25 Intake & Output 08/27/16 08/28/16 08/28/16 18:59 06:59 18:59 Intake Total 200 800 Output Total 100 Balance 100 800 Weight 56 kg 56 kg Intake: IV 600 Sodium Chloride 0.9% 1, 600 000 ml @ 75 mls/hr IV . [id number] [facility] Rx#:[id number] Oral 200 200 Output: Urine 100 Other: Voiding Method Bedside Commode Bedside Commode Diaper Diaper # Voids 1 1 - Exam GENERAL: Pt awake and alert, well-appearing, well-nourished, sitting up in a chair in no acute distress. HEAD: Atraumatic, normocephalic. EYES: Pupils equal, round, and reactive to light, extraocular movements intact, sclera anicteric, conjunctiva are normal. ENT: Oropharynx clear without exudates. Moist mucous membranes. Tongue smooth, pink, no lesions, protrudes in midline. NECK:Normal range of motion, supple without lymphadenopathy or JVD. LUNGS: Breath sounds clear to auscultation bilaterally. No wheezes, rales, or rhonchi. HEART: Heart S1, S2, no S3 or S4. Irregularly irregular. No murmurs, rubs or gallops. ABDOMEN: Soft, nontender, nondistended, normoactive bowel sounds. No guarding, no rebound. No masses or organomegaly appreciated. EXTREMITIES: Palpable peripheral pulses. 1+ edema to bilateral lower extremities. No calf tenderness. NEUROLOGICAL: Pt oriented to person, place and time. No focal deficits noted. Decreased strength noted to left upper and lower extremity. PSYCH: Normal mood, normal affect. SKIN: Warm, dry, intact. Normal turgor. No rashes or lesions. - Labs CBC & Chem 7: 08/28/16 06:59 08/28/16 06:59 Labs: Abnormal Lab Results - Last 24 Hours (Table) 08/28/16 08/28/16 Range/Units 06:59 06:59 RBC 3.26 L (3.80-5.40) m/uL Hgb 10.1 L (11.4-16.0) gm/dL Hct 33.2 L (34.0-46.0) % MCV 101.7 H (80.0-100.0) fL MCHC 30.6 L (31.0-37.0) g/dL RDW 15.6 H (11.5-15.5) % Chloride 110 H (98-107) mmol/L BUN 18 H (7-17) mg/dL Creatinine 1.06 H (0.52-1.04) mg/dL Microbiology - Last 24 Hours (Table) 08/26/16 18:06 Urine Culture - Final Urine,Clean Catch Assessment and Plan Plan: Impression and plan: 1. Possible urinary tract infection ruled out. Urine cultures negative. Continue IV antibiotics. 2. Hypokalemia. Replace potassium per protocol. 3. Alzheimer's dementia with visual hallucinations, recently placed on Seroquel but was discontinued after 3 days. Consult has been initiated to psychiatric service, recommendations pending. 4. Hiatal hernia with progressive problems with gagging and dysphagia. 5. Persistent atrial fibrillation, ventricular rate controlled. Patient is not on any anticoagulation secondary to history of GI bleed. 6. Shortness of breath, present on admission, with evidence of elevated BNP and bilateral leg swelling. Chest x-ray with evidence of diffuse alveolar infiltrate and small left pleural effusion suggestive of possible CHF. Cardiology has seen and evaluated patient. No plans for diuretics at this time. Echocardiogram pending. 7. Hypertension. 8. History of lung cancer with left lower lobectomy. 9. History of Mnire's disease. 10. History of nicotine dependence. 11. Gait dysfunction. Patient uses walker at home. Physical therapy has evaluated patient and is recommending subacute rehab upon discharge. 12. Left-sided weakness without other neurological deficits. Will order CT of brain. 12. DVT prophylaxis. Continue FELISA hose to bilateral lower extremities. 13. GI prophylaxis. Continue Pepcid. 14. Repeat CBC and BMP in a.m. The above impression and plan have been discussed and directed by Dr. Ward. Sparkle ALY acting as scribe for Dr. Ward.
--- NOTE | 2016-08-28 10:29 | ECHOF ---
Referral Reason:afib MEASUREMENTS -------- HEIGHT: 165.1 cm WEIGHT: 55.8 kg BP: 132/79 RVIDd: 3.5 cm (< 3.3) IVSd: 1.4 cm (0.6 - 1.1) LVIDd: 3.0 cm (3.9 - 5.3) LVPWd: 1.3 cm (0.6 - 1.1) IVSs: 1.6 cm LVIDs: 2.2 cm LVPWs: 1.5 cm LA Diam: 2.8 cm (2.7 - 3.8) LAESV Index (A-L): 51.71 ml/m Ao Diam: 3.6 cm (2.0 - 3.7) AV Cusp: 1.4 cm (1.5 - 2.6) MV EXCURSION: 14.273 mm (> 18.000) MV EF SLOPE: 132 mm/s (70 - 150) EPSS: 1.1 cm RAP: 10.00 mmHg RVSP: 50.72 mmHg FINDINGS -------- Atrial fibrillation. This was a technically adequate study. The left ventricular size is normal. There is moderate concentric left ventricular hypertrophy. Overall left ventricular systolic function is mild-moderately impaired with, an EF between 40 - 45 %. Basal inferior LV wall motion is hypokinetic. Mid inferoseptal LV wall motion is hypokinetic. Apical septum LV wall motion is hypokinetic. The right ventricle is mildly enlarged. LA is severely dilated >40 ml/m2 The right atrium is normal in size. Aortic valve is trileaflet and is moderately thickened. Mild mitral annular calcification present. There is trace to mild mitral regurgitation. Mild tricuspid regurgitation present. There is moderate pulmonary hypertension. The right ventricular systolic pressure, as measured by Doppler, is 50.72mmHg. Trace/mild (physiologic) pulmonic regurgitation. The aortic root size is normal. Normal inferior vena cava with less than 50% inspiratory collapse consistent with estimated right atrial pressure of 10 mmHg. There is no pericardial effusion. CONCLUSIONS -------- 1. Atrial fibrillation. 2. LA is severely dilated >40 ml/m2 3. Aortic valve is trileaflet and is moderately thickened. 4. Mild mitral annular calcification present. 5. There is trace to mild mitral regurgitation. 6. Mild tricuspid regurgitation present. 7. There is moderate pulmonary hypertension. 8. The right ventricular systolic pressure, as measured by Doppler, is 50.72mmHg. 9. Trace/mild (physiologic) pulmonic regurgitation. 10. The aortic root size is normal. 11. Normal inferior vena cava with less than 50% inspiratory collapse consistent with estimated right atrial pressure of 10 mmHg. 12. This was a technically adequate study. 13. There is no pericardial effusion. 14. The left ventricular size is normal. 15. There is moderate concentric left ventricular hypertrophy. 16. Overall left ventricular systolic function is mild-moderately impaired with, an EF between 40 - 45 %. 17. Basal inferior LV wall motion is hypokinetic. 18. Mid inferoseptal LV wall motion is hypokinetic. 19. Apical septum LV wall motion is hypokinetic. 20. The right ventricle is mildly enlarged. CUPROUS CHLORIDE OPERATOR: Jada Montgomery RDCS
--- NOTE | 2016-08-28 11:03 | CT ---
EXAMINATION TYPE: CT brain wo con DATE OF EXAM: 08/28/2016 10:41 AM COMPARISON: 08/15/2016 INDICATION: Patient having left sided weakness DLP: 945.5 mGycm, Automated exposure control for dose reduction was used. CONTRAST: None CT of the brain is performed utilizing 3 mm thick sections through the posterior fossa and 3 mm thick sections through the remaining calvarium. Study is performed within 24 hours of arrival to the hosp [facility]. No abnormal hyperdensity is present to suggest an acute intracranial hemorrhage. No mass lesion is evident. No acute infarcts are evident. Periventricular white matter hypodensity is present, most likely on th e basis of chronic white matter ischemic changes. Ventricles and sulci are prominent for the patient age. Paranasal sinuses and mastoid air cells within the [id number] are clear. There is been a prior lef t mastoidectomy. Septal deviation is noted. Hyperostosis frontalis internus, normal variant is presen t. IMPRESSIONS: 1. Atrophy with periventricular white matter ischemic changes. Findings are stable from comparison.
[2016-08-28] MEDS ORDERED: FUROSEMIDE 10 MG/ML 2 ML VIAL IV STA (11:34)
--- NOTE | 2016-08-28 11:34 | P.PN ---
Subjective Patient appears obtunded this morning. There is a daughter at bedside. Patient is not responding to pressures when she does she is responding inappropriately. She remains in atrial fibrillation with controlled ventricular rate. An echocardiogram revealed cardiomyopathy with an ejection fraction of 40-45%. Her prognosis guarded a computed tomography scan of the brain did not reveal any infarct. Patient is not a candidate for long-term anticoagulation because of history of GI bleed. Objective - Vital Signs Vital signs: Vital Signs Temp 97.3 F L 08/28/16 08:25 Pulse 92 08/28/16 08:25 Resp 16 08/28/16 08:25 BP 115/77 08/28/16 08:25 Pulse Ox 98 08/28/16 08:25 Intake & Output 08/27/16 08/28/16 08/28/16 18:59 06:59 18:59 Intake Total 200 800 Output Total 100 Balance 100 800 Weight 56 kg 56 kg Intake: IV 600 Sodium Chloride 0.9% 1, 600 000 ml @ 75 mls/hr IV . [id number] [facility] Rx#:[id number] Oral 200 200 Output: Urine 100 Other: Voiding Method Bedside Commode Bedside Commode Bedside Commode Diaper Diaper Diaper # Voids 1 1 - Exam Patient is unresponsive chest exam reveals diminished air entry with occasional rhonchi heart exam reveals first and second heart sounds are regular rhythm abdomen is soft exam extremities reveals trace edema peripheral pulses are felt - Labs CBC & Chem 7: 08/28/16 06:59 08/28/16 06:59 Labs: Abnormal Lab Results - Last 24 Hours (Table) 08/28/16 08/28/16 Range/Units 06:59 06:59 RBC 3.26 L (3.80-5.40) m/uL Hgb 10.1 L (11.4-16.0) gm/dL Hct 33.2 L (34.0-46.0) % MCV 101.7 H (80.0-100.0) fL MCHC 30.6 L (31.0-37.0) g/dL RDW 15.6 H (11.5-15.5) % Chloride 110 H (98-107) mmol/L BUN 18 H (7-17) mg/dL Creatinine 1.06 H (0.52-1.04) mg/dL Microbiology - Last 24 Hours (Table) 08/26/16 18:06 Urine Culture - Final Urine,Clean Catch Assessment and Plan Plan: Chronic A. fib with controlled ventricular rate Shortness of breath probably secondary to acute acute onset systolic heart failure. Altered mental status could be due to dementia UTI could be due to CVA Prognosis guarded continue with current supportive care I will and the small dose of Lasix and TRISTIAN inhibitor. Blood pressure permitting we will consider adding a beta ramana.
[2016-08-28] MEDS: LISINOPRIL 2.5 MG TAB PO SCH (12:12)
[2016-08-28] MEDS: MULTIVITAMINS, THERA 1 EACH TAB PO SCH (12:13)
[2016-08-28 12:17] LABS: Glucose,Whole Blood 79 mg/dL (75-99)
--- NOTE | 2016-08-28 14:30 | P.CN ---
Psychiatric Consult - . Consult date: 08/28/16 Consult:: IDENTIFYING DATA: Ms. Connolly is an 86-year-old female who has a history of a dementia of the Alzheimer's type. She presented to medicine service with increasing confusion, urinary tract infection, atrial fibrillation and hypokalemia. HISTORY OF PRESENT ILLNESS: Medicine consulted psychiatry because she was experiencing auditory hallucinations and increased agitation. I reviewed the medical record and attempted to interview Mrs. Connolly. She provided little information. She appeared perplexed when I asked her questions about psychiatric symptoms including auditory or visual hallucinations. I reviewed her medication record. Her psychotropic medications include citalopram 40 mg daily, gabapentin 300 mg twice a day, quetiapine 25 mg daily at bedtime and temazepam 15 mg at bedtime. MENTAL STATUS EXAM: She presented as a pale and frail appearing elderly woman resting comfortably in bed. She appeared sedated and complained of feeling tired. She fell asleep during the interview. When I was able to get her attention she made eye contact. She had a flat facial expression. She had marked psychomotor retardation and no abnormal movements. Her speech was not spontaneous and when she spoke her speech had decreased rate, rhythm and volume. Her affect was flat. In response to questions about suicidality she replied "no". She did not appear to understand questions about depressive cognitions such as hopelessness, helplessness and worthlessness. She did not express ideas reference or paranoid ideation. Her thinking was concrete but her associations appeared coherent. She denied current hallucinations and did not appear to be responding to internal stimuli. I administered the [facility] Orientation Memory Concentration test. Her mentation was slow and she had difficulty concentrating and attending to the examination. Her total weighted error score was 14; a total weighted error score greater than 10 is consistent with dementia. She knew the year and month. She was able to repeat the memory phrase "Joe Morales, [address] [place] [address].". She estimated that time correctly within 1 hour of the actual time. She fell asleep as she was counting backwards from 2 to 1. When I woke her she does not remember the task. She was unable to repeat the months of the year in reverse beginning with May. She remembered 2 elements of memory phrase - "Joe Brown." IMPRESSIONS: She is an elderly woman who has an established diagnosis of dementia. She presented to unit with increased confusion and visual hallucinations in the context of urinary tract infection, atrial fibrillation hypokalemia. It is not uncommon to encounter agitation and hallucinations, both auditory and visual, in patients with advanced dementia. The worsening of her mental state is most likely secondary to her multiple medical problems. The prescription of benzodiazepines such as temazepam is usually not recommended an individuals with advanced dementia since benzodiazepines including temazepam further impaircognitive functioning, increased station and increased likelihood of falls. Antipsychotic such as quetiapine may be beneficial in the treatment of behavioral and perceptual disturbances in individual with dementia but the primary approach for the treatment of change in mental status is to address underlying causes. DIAGNOSIS: Brandin. 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 Continue quetiapine at bedtime for sleep and for treatment of nighttime confusions with hallucinations. Titrate quetiapine according to clinical response and side effects. Consider decreasing the dose of citalopram to 20 mg since citalopram causes a dose dependent QT interval prolongation; although 40 milligrams is the usual recommended maximum dose, the elderly a more sensitive to the QT prolongation effects of citalopram. Thank you for this consult. 08/28/16 14:05
--- NOTE | 2016-08-28 16:33 | P.CNNES ---
History of Present Illness Consult date: 08/28/16 Reason for Consult: Patient with left-sided weakness and possible stroke. History of Present Illness: This patient is a 86-year-old right-handed white female who was admitted to hospital with symptoms of urinary tract infection with visual hallucinations. Patient has a history of mild dementia as well as chronic atrial fibrillation. She is unable to take any treatment for the atrial fibrillation as she has a bleeding tendency. On admission she was noted to have visual hallucinations and increased confusion felt to be secondary to her urinary tract infection and worsening dementia. She was admitted to hospital and is been undergoing antibiotic therapy. This morning she was noted to have left arm weakness which appear to be significant according to family members. She did not have this left-sided weakness on initial admission. She was also noted to have slurring of her speech and slight left-sided facial droop. For these reasons neurology was consulted today for further evaluation of stroke. Patient is somewhat somnolent but arousable. Her speech appears to be quite slurred. She follows only simple commands. She does continue to show slight left-sided facial droop. Given this patient's history of chronic atrial fibrillation we have recommended further evaluation to rule out acute stroke. Would recommend MRI of the brain for further assessment. Computed tomography scan of the brain was performed today and revealed only atrophy with periventricular white matter ischemic changes. We have recommended a complete stroke evaluation for the patient. Her overall prognosis at this time remains very guarded. Review of Systems Constitutional: Denies chills, Denies fever Eyes: denies blurred vision, denies pain Ears, nose, mouth and throat: Denies headache, Denies sore throat Cardiovascular: Denies chest pain, Denies shortness of breath Respiratory: Denies cough Gastrointestinal: Denies abdominal pain, Denies diarrhea, Denies nausea, Denies vomiting Genitourinary: Denies dysuria, Denies hematuria Musculoskeletal: Denies myalgias Integumentary: Denies pruritus, Denies rash Neurological: Denies numbness, Denies weakness Psychiatric: Denies anxiety, Denies depression Endocrine: Denies fatigue, Denies weight change Past Medical History Past Medical History: Atrial Fibrillation, Cancer, Dementia, Hypertension Additional Past Medical History / Comment(s): lung ca, meniere's, fracture to rt shoulder History of Any Multi-Drug Resistant Organisms: None Reported Past Surgical History: Appendectomy, Breast Surgery, Ear Surgery Additional Past Surgical History / Comment(s): left lower lobectomy, ovarian cyst, shoulder replacement Past Anesthesia/Blood Transfusion Reactions: No Reported Reaction Past Psychological History: No Psychological Hx Reported Smoking Status: Former smoker Past Alcohol Use History: None Reported Past Drug Use History: None Reported - Past Family History Father Family Medical History: Myocardial Infarction (DE) Additional Family Medical History / Comment(s): father passed from an acute heart attack in his 70's Mother Family Medical History: Cancer Additional Family Medical History / Comment(s): mother passed at 34 with uterine cancer Medications and Allergies Home Medications Medication Instructions Recorded Confirmed Type Cholecalciferol [Vitamin D3] 2,000 unit PO DAILY 01/24/16 08/25/16 History Multivit-Min/FA/Lycopene/Lut 1 tab PO DAILY 01/24/16 08/25/16 History [Centrum Silver Tablet] Citalopram Hydrobromide [CeleXA] 40 mg PO DAILY 08/25/16 08/25/16 History Cyanocobalamin (Vitamin B-12) 1,000 mcg PO DAILY 08/25/16 08/25/16 History [Vitamin B-12] Gabapentin [Neurontin] 300 mg PO BID 08/25/16 08/25/16 History Ibuprofen [Motrin] 800 mg PO Q6H PRN 08/25/16 08/25/16 History SUMAtriptan SUCCINATE [Imitrex] 50 mg PO DAILY PRN 08/25/16 08/25/16 History Temazepam [Restoril] 15 mg PO HS 08/25/16 08/25/16 History QUEtiapine [SEROquel] 25 mg PO HS 08/27/16 08/27/16 History Allergies Allergy/AdvReac Type Severity Reaction Status Date / Time iodine Allergy Unknown Verified 08/25/16 19:03 Penicillins Allergy Unknown Verified 08/25/16 19:03 shellfish derived [Shellfish] Allergy Unknown Verified 08/25/16 19:03 Physical Examination - Vital Signs Vital Signs: Vital Signs Temp Pulse Resp BP Pulse Ox 08/28/16 15:00 97.7 F 95 16 119/69 98 08/28/16 08:25 97.3 F L 92 16 115/77 98 08/27/16 21:45 97.9 F 105 H 16 116/65 97 Intake and Output 08/28/16 08/28/16 08/28/16 06:59 14:59 22:59 Intake Total 600 Balance 600 Intake: IV 600 Sodium Chloride 0.9% 1, 600 000 ml @ 75 mls/hr IV . [id number] [facility] Rx#:[id number] Other: Voiding Method Bedside Commode Bedside Commode Diaper Diaper # Voids 1 2 Weight 56 kg - Constitutional General appearance: average body habitus, cooperative - EENT EENT: mucous membranes moist - Respiratory Respiratory: lungs clear, normal breath sounds - Cardiovascular Cardiovascular: regular rate, normal S1, normal S2 Extremities: no peripheral edema bilaterally - Gastrointestinal Gastrointestinal: normoactive bowel sounds - Integumentary Integumentary: normal - Neurologic Cranial nerve examination: PERRL, EOMI, VFF, V1/V2/V3 grossly intact, tongue midline, intact gag reflex, intact corneal reflex, facial droop (Patient has a left-sided facial droop of upper motor neuron finding.), normal palatal elevation Sensorimotor examination: intact Motor examination - right side: 4/5: biceps, triceps, wrist flexion, wrist extension, adjunct professor of voice, hip flexors, knee extensors, dorsiflexion, toe extension (EHL) , plantarflexion Motor examination - left side: 3/5: biceps, triceps, wrist flexion, wrist extension, adjunct professor of voice, hip flexors, knee extensors, dorsiflexion, toe extension (EHL) , plantarflexion Detailed sensory examination: intact Reflex and gait examination: intact Reflexes: 1+: ankle, bicep, knee, tricep - Musculoskeletal Musculoskeletal: no pain - Psychiatric Psychiatric: depressed, cooperative Results - Laboratory Findings CBC and BMP: 08/28/16 06:59 08/28/16 06:59 Abnormal Lab Findings: Abnormal Labs 08/25/16 08/26/16 08/26/16 21:30 03:24 11:26 RBC Hgb Hct MCV MCHC RDW Potassium 2.8 L* Chloride BUN Creatinine POC Glucose (mg/dL) 73 L Urine Appearance Cloudy H Urine Protein Trace H Ur Leukocyte Esterase Moderate H Urine WBC 17 H Urine Bacteria Many H Urine Mucus Many H 08/26/16 08/26/16 08/26/16 17:21 17:47 21:09 RBC Hgb Hct MCV MCHC RDW Potassium Chloride BUN Creatinine POC Glucose (mg/dL) 67 L 74 L 106 H Urine Appearance Urine Protein Ur Leukocyte Esterase Urine WBC Urine Bacteria Urine Mucus 08/27/16 08/27/16 08/28/16 08:03 08:03 06:59 RBC 3.64 L 3.26 L Hgb 10.1 L Hct 33.2 L MCV 101.7 H MCHC 30.6 L RDW 15.8 H 15.6 H Potassium 3.3 L Chloride BUN 18 H Creatinine POC Glucose (mg/dL) Urine Appearance Urine Protein Ur Leukocyte Esterase Urine WBC Urine Bacteria Urine Mucus 08/28/16 06:59 RBC Hgb Hct MCV MCHC RDW Potassium Chloride 110 H BUN 18 H Creatinine 1.06 H POC Glucose (mg/dL) Urine Appearance Urine Protein Ur Leukocyte Esterase Urine WBC Urine Bacteria Urine Mucus Assessment and Plan (1) Acute encephalopathy Status: Acute Code(s): G93.40 - ENCEPHALOPATHY, UNSPECIFIED (2) Dementia of the Alzheimer's type Status: Acute Code(s): G30.9 - ALZHEIMER'S DISEASE, UNSPECIFIED; F02.80 - DEMENTIA IN OTH DISEASES CLASSD ELSWHR W/O BEHAVRL DISTURB (3) Acute right arterial ischemic stroke, MCA (middle cerebral artery) Status: Acute Code(s): I63.511 - CEREB INFRC D/T UNSP OCCLS OR STENOS OF RIGHT MID CEREB ART (4) Paroxysmal a-fib Status: Acute Code(s): I48.0 - PAROXYSMAL ATRIAL FIBRILLATION Plan: This patient is a 86-year-old female who is being evaluated today for acute left -sided arm weakness and slurred speech. Patient was initially admitted to Hospital on 08/25/2016 for acute urinary tract infection and hallucinations. She has a history of mild dementia. Today she was noted to have left arm weakness. She does have a history of chronic atrial fibrillation but is not a candidate for anticoagulation and she has a bleeding disorder. We have recommended the patient to undergo an MRI of the brain for further evaluation. She had a computed tomography scan of the brain today which failed to reveal any acute changes. We would recommend a carotid Doppler ultrasound as well as this has not been done recently. Her overall prognosis at this time remains very guarded. We have recommended a complete stroke evaluation for the patient. Case was discussed at length with the patient's family member at bedside today. All of their questions were answered. Overall prognosis at this time remains very guarded. She also has underlying encephalopathy with worsening dementia symptoms. We will continue to monitor her progress closely during this admission. Overall prognosis as noted remains very guarded. Time with Patient: Greater than 30
[2016-08-28 17:14] LABS: Glucose,Whole Blood 79 mg/dL (75-99)
--- NOTE | 2016-08-28 20:21 | MR ---
EXAMINATION TYPE: MR brain wo con DATE OF EXAM: 08/28/2016 7:43 PM COMPARISON: CT brain 08/28/2016 HISTORY: 86 year-old female acute right hemispheric stroke. Left-sided weakness. TECHNIQUE: Multiplanar, multisequence images of the brain and brainstem were acquired without IV con trast. Diffusion weighted imaging is performed. Fast brain protocol was utilized. FINDINGS: Artifacts related to patient motion. No evidence for acute infarction, hemorrhage, mass, mass effect, midline shift, herniation, effacemen t of basal cisterns, or extra-axial fluid collection. There is moderate generalized supratentorial volume loss especially with central cerebral atrophy and secondary mild ventriculomegaly as seen on CT. T2/FLAIR weighted sequences moderate to severe patchy and confluent white matter hypodensities in bot h cerebral hemispheres. Major intracranial flow voids are intact. Midline structures demonstrate normal morphology. The craniocervical junction is normal. Mucosal thickening within the ethmoid air cells. Globes are intact. Leftward nasal septal deviation. There is some fluid signal seen in the region of the right mastoid air cells. IMPRESSION: 1. No acute intracranial abnormality seen. 2. Moderate cerebral atrophy and secondary ex vacuo ventriculomegaly. 3. Moderate to severe patchy and confluent T2 bright white matter change likely relating to chronic s mall vessel ischemic disease. 4. Some fluid signal involving the right mastoid air cells could represent retained secretions. Corre late for any mastoid pain to exclude mastoiditis.
[2016-08-28] MEDS: QUEtiapine 25 MG TAB PO SCH (20:22)
[2016-08-28] MEDS: LEVOFLOXACIN 250 MG TAB PO SCH (20:22)
[2016-08-28 21:06] LABS: Glucose,Whole Blood 96 mg/dL (75-99)
--- NOTE | 2016-08-28 21:48 | US ---
EXAMINATION TYPE: US carotid duplex BILAT DATE OF EXAM: 08/28/2016 9:17 PM COMPARISON: NONE CLINICAL HISTORY: right hemispheric stroke. EXAM MEASUREMENTS: RIGHT: Peak Systolic Velocity (PSV) cm/sec ----- Right CCA: 53.7 ----- Right ICA: 74.9 ----- Right ECA: 59.4 ICA/CCA ratio: 1.4 RIGHT: End Diastole cm/sec ----- Right CCA: 10.9 ----- Right ICA: 12.8 ----- Right ECA: 6.3 LEFT: Peak Systolic Velocity (PSV) cm/sec ----- Left CCA: 44.4 ----- Left ICA: 120.0 ----- Left ECA: 41.9 ICA/CCA ratio: 2.7 LEFT: End Diastole cm/sec ----- Left CCA: 8.6 ----- Left ICA: 25.4 ----- Left ECA: 9.2 VERTEBRALS (direction of flow): Right Vertebral: Antegrade Left Vertebral: Antegrade TECHNOLOGIST IMPRESSION: Moderate/severe amount of plaque visualized in bilateral CCAs and bulbs, no elevated velocities. ICA/CCA ratio 2.7 on the left IMPRESSION: There is antegrade flow in the vertebral arteries. There is calcified plaque and signal loss at the carotid artery bifurcations. Lumen is not well evaluated. According to the velocities and images there is at least 50% stenosis at the carotid artery bifurcations. There is calcified plaque and signal loss in both distal common carotid arteries with lumen narrowing of probably 50%. Criteria for Assigning % of Stenosis / Diameter reduction (Estimation based on the indirect measurements of the internal carotid artery velocities (ICA PSV). 1. Normal (no stenosis)=ICA PSV < 125 cm/s: ratio < 2.0: ICA EDV<40 cm/s. 2. Less than 50% stenosis=ICA PSV < 125 cm/s: ratio < 2.0: ICA EDV<40 cm/s. 3. 50 to 69% stenosis=ICA PSV of 125 to 230 cm/s: ration 2.0 ? 4.0: ICA EDV 40-100 cm/s. 4. Greater than 70% stenosis to near occlusion= ICA PSV > 230 cm/s: ratio > 4.0: ICA EDV > 100 cm/s. 5. Near occlusion= ICA PSV velocities may be low or undetectable: variable ratio and ICA EDV. 6. Total occlusion=unable to detect flow.
[2016-08-29 07:19] LABS: Glucose,Whole Blood 86 mg/dL (75-99)
[2016-08-29 08:04] LABS: Basophils % (A) 0 %; CH 30.6; CHCM 30.7; Eosinophils # (A) 0.3 k/uL (0-0.7); Eosinophils % (A) 7 %; HCT 31.7 % (34.0-46.0); HDW 2.83; HGB 9.8 gm/dL (11.4-16.0); Hypochromasia Moderate; Luc # (Auto) 0.14; Luc % (Auto) 3; Lymphocytes # (A) 1.1 k/uL (1.0-4.8); Lymphocytes % (A) 23 %; MCH 31.1 pg (25.0-35.0); MCHC 30.9 g/dL (31.0-37.0); MCV 100.6 fL (80.0-100.0); Macrocytosis Slight; Mean Platelet Volume 8.2; Monocytes # (A) 0.2 k/uL (0-1.0); Monocytes % (A) 5 %; Neutrophils % (A) 62 %; RBC 3.15 m/uL (3.80-5.40); RDW 15.9 % (11.5-15.5); WBC 4.7 k/uL (3.8-10.6); WBC (Perox) 4.86
[2016-08-29 08:19] LABS: Anion Gap 6 mmol/L; Blood Urea Nitrogen 19 mg/dL (7-17); Calcium 8.8 mg/dL (8.4-10.2); Carbon Dioxide 26 mmol/L (22-30); Chloride 110 mmol/L (98-107); Glucose 82 mg/dL (74-99); Magnesium 2.1 mg/dL (1.6-2.3); Non-African American GFR(MDRD) 57 (>60 ml/min/1.73 sqM); Potassium 3.9 mmol/L (3.5-5.1); Sodium 142 mmol/L (137-145)
--- NOTE | 2016-08-29 08:24 | CDI ---
In responding to this query, please exercise your independent professional judgment. The [facility] [employer] Coding Staff and Clinical Documentation Specialists appreciate your assistance in clarifying documentation, maintaining compliance with coding guidelines, accurately documenting patients condition and capturing severity of illness. The fact that a question is asked does not imply that any particular answer is desired or expected. Communication forms are a method of clarifying documentation and are not made part of the Legal Health Record. Thank you in advance for your clarification. Last Revision, August 2015 Dana Winters [address] [facility] [place] [address] Documentation Clarification Form Date: 08/28/2016 4:15:00 PM From: Marissa Prieto Admit Date: 08/25/2016 9:21:00 PM Patient Name: Annmarie Connolly Visit Number: [id number] Discharge Date: Dr. Joe Roque Dementia was documented in your consult on 08/28/16 Patient history/risk factors: Atrial fibrillation, Cancer, Dementia, hypertension Clinical indicators: Present to ED for evaluation of shortness of breath nausea and hallucinations Labs: WBC 5.6, K+ 2.6, UA: Moderate Leukocyte Esterase (urine culture negative) Chest x ray: Correlate for congestive heart failure CT Brain: Atrophy with periventricular white matter ischemic changes. 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 Alzheimers disease (Specify if early (presenile) or late (senile) onset) Other condition or cause of dementia, please specify_ Unable to determine Please document in your progress note in order to capture severity of illness and risk of mortality. Include clinical findings that support your diagnosis. FYI: Press F11 to launch patient chart Place X here if this finding has no clinical significance, is not applicable or if you are not able to provide any additional documentation. MTDD
[2016-08-29] MEDS: CYANOCOBALAMIN 500 MCG TAB PO SCH (08:55)
[2016-08-29] MEDS: CHOLECALCIFEROL 1,000 UNIT TAB PO SCH (08:55)
[2016-08-29] MEDS: MULTIVITAMINS, THERA 1 EACH TAB PO SCH (08:55)
[2016-08-29] MEDS: LISINOPRIL 2.5 MG TAB PO SCH (08:57)
[2016-08-29] MEDS: SODIUM CHLORIDE 0.9% 1,000 ML IV SCH (08:57)
[2016-08-29] MEDS: GABAPENTIN 300 MG CAP PO SCH ×2 (08:58→20:08)
[2016-08-29] MEDS: CITALOPRAM HYDROBROMIDE 20 MG TAB PO SCH (08:58)
[2016-08-29] MEDS: FAMOTIDINE 20 MG TAB PO SCH (08:58)
[2016-08-29 11:29] LABS: Glucose,Whole Blood 93 mg/dL (75-99)
[2016-08-29] MEDS: METOPROLOL TARTRATE 12.5 MG TAB PO SCH ×2 (12:17→20:08)
--- NOTE | 2016-08-29 13:48 | P.PN ---
Subjective Principal diagnosis: Altered mental status Patient is an 86-year-old white female admitted with evidence of increased confusion with hallucinations, possible urinary tract infection, possible congestive heart failure with elevated BNP and complaints of gagging secondary to unrepairable hiatal hernia. Cardiology has been consulted for possible congestive heart failure, echocardiogram with evidence of cardiomyopathy with an ejection fraction of 40-45%. Psychiatry has seen and evaluated patient with recommendations to discontinue temazepam as it may contribute to confusion and impairment of cognitive function, decreased dose of citalopram to 20 mg, and continue quetiapine at bedtime for sleep. Yesterday, neurology was consulted increased left-sided weakness and decreased responsiveness. CT of the brain with no evidence of acute findings. MRI of brain with no evidence of acute intracranial abnormality. This morning, patient is lying in bed. Patient is very difficult to understand as her speech is slurred. Patient is very weak and needs help holding onto a cup. When asked to lift her left arm, patient uses her right arm to lift it. Patient denies headache, chills, fevers, nausea , vomiting, shortness of breath, chest pain, or abdominal pain. At this time, family has requested hospice consult. Objective - Vital Signs Vital signs: Vital Signs Temp 96.9 F L 08/29/16 07:42 Pulse 110 H 08/29/16 07:42 Resp 16 08/28/16 21:00 BP 98/55 08/29/16 07:42 Pulse Ox 98 08/29/16 07:42 Intake & Output 08/28/16 08/29/16 08/29/16 18:59 06:59 18:59 Intake Total 50 Balance 50 Weight 62 kg Intake: Oral 50 Other: Voiding Method Bedside Commode Bedside Commode Bedside Commode Diaper Diaper Diaper # Voids 1 # Bowel Movements 1 1 - Exam GENERAL: Pt awake and alert, lying in bed, appears fatigued. HEAD: Atraumatic, normocephalic. EYES: Pupils equal, round, and reactive to light, extraocular movements intact, sclera anicteric, conjunctiva are normal. ENT: Dry mucous membranes. NECK:Normal range of motion, supple without lymphadenopathy or JVD. LUNGS: Breath sounds clear to auscultation bilaterally. No wheezes, rales, or rhonchi. HEART: Heart S1, S2, no S3 or S4. Irregularly irregular. No murmurs, rubs or gallops. ABDOMEN: Soft, nontender, nondistended, normoactive bowel sounds. No guarding, no rebound. No masses or organomegaly appreciated. EXTREMITIES: Palpable peripheral pulses. 1+ edema to bilateral lower extremities. No calf tenderness. Decreased strength to upper and lower left extremity NEUROLOGICAL: Pt oriented to person. Disoriented to place and time. PSYCH: Poor insight. Poor judgment. SKIN: Warm, dry, intact. Normal turgor. No rashes or lesions. - Labs CBC & Chem 7: 08/29/16 07:29 08/29/16 07:29 Labs: Abnormal Lab Results - Last 24 Hours (Table) 08/29/16 08/29/16 Range/Units 07:29 07:29 RBC 3.15 L (3.80-5.40) m/uL Hgb 9.8 L (11.4-16.0) gm/dL Hct 31.7 L (34.0-46.0) % MCV 100.6 H (80.0-100.0) fL MCHC 30.9 L (31.0-37.0) g/dL RDW 15.9 H (11.5-15.5) % Chloride 110 H (98-107) mmol/L BUN 19 H (7-17) mg/dL Assessment and Plan Plan: Impression and plan: 1. Possible urinary tract infection ruled out. Urine cultures negative. IV antibiotics will be discontinued. 2. Hypokalemia, resolved. 3. Alzheimer's dementia with visual hallucinations, recently placed on Seroquel but was discontinued after 3 days. Consult has been initiated to psychiatric service, recommendations noted. 4. Hiatal hernia with progressive problems with gagging and dysphagia. 5. Persistent atrial fibrillation, ventricular rate controlled. Patient is not on any anticoagulation secondary to history of GI bleed. 6. Shortness of breath, present on admission, suspect secondary to acute systolic heart failure. Cardiology has seen and evaluated patient, recommendations noted. 7. Hypertension. 8. History of lung cancer with left lower lobectomy. 9. History of Mnire's disease. 10. History of nicotine dependence. 11. Gait dysfunction. Patient uses walker at home. Continue physical therapy. 12. Left-sided weakness suspect secondary to acute CVA. Neurology has seen and evaluated patient, recommendations noted. 12. DVT prophylaxis. Continue FELISA hose to bilateral lower extremities. 13. GI prophylaxis. Continue Pepcid. Consult has been initiated to hospice. Await final family decision prior to making discharge plan. The above impression and plan have been discussed and directed by Dr. Ward. Sparkle ALY acting as scribe for Dr. Ward.
--- NOTE | 2016-08-29 19:33 | P.PN ---
Subjective This patient is a 86-year-old female who was seen in neurology consultation yesterday for confusion and left-sided weakness. She was sent for MRI of the brain for further evaluation for acute stroke. MRI of the brain failed to reveal any evidence of acute stroke on diffusion-weighted imaging. MRI does reveal severe white matter ischemic changes as well as cortical atrophy. There was moderate to severe white matter changes suggesting vascular form of dementia for this patient. She was seen by psychiatry yesterday who also feels she has underlying dementia and delirium which is multifactorial. The patient was started on Seroquel as per the recommendations of psychiatry. Patient continues to have episodes of confusion today as well. The results of the MRI of the brain was discussed today with the patient's daughter. Apparently the family is now considering hospice care for this patient at the time of discharge. Patient is more comfortable today and seems to be slightly more awake and alert. As mentioned she likely has some degree of early vascular dementia contributing to her overall confusional state. We will continue close neurological follow-up for this patient during this admission. Her overall prognosis at this time remains guarded. Objective - Vital Signs Vital signs: Vital Signs Temp 97.9 F 08/29/16 15:53 Pulse 99 08/29/16 15:53 Resp 16 08/29/16 15:53 BP 127/72 08/29/16 15:53 Pulse Ox 92 L 08/29/16 15:53 Intake & Output 08/28/16 08/29/16 08/29/16 18:59 06:59 18:59 Intake Total 50 160 Balance 50 160 Weight 62 kg Intake: Intake, IV Titration 160 Amount Sodium Chloride 0.9% 1, 160 000 ml @ 20 mls/hr IV . Q24H [facility] Rx#:[id number] Oral 50 Other: Voiding Method Bedside Commode Bedside Commode Bedside Commode Diaper Diaper Diaper # Voids 1 # Bowel Movements 1 1 - Exam Physical examination: PHYSICAL EXAMINATION: Patient is resting comfortably in bed. VITAL SIGNS: Blood pressure is [127/72]. Heart rate is [90]. Respiration is [16] . Temperature is [97.9]. HEENT: Head is atraumatic, neck is supple, there were no carotid bruits. CHEST: Lungs are clear to auscultation and percussion. CARDIAC: S1, S2 normal rate and rhythm. There is no murmur. ABDOMEN: Soft and nontender. Bowel sounds are present. EXTREMITIES: There is no pedal edema. Peripheral pulses are present. Neurological examination: - Labs CBC & Chem 7: 08/29/16 07:29 08/29/16 07:29 Labs: Abnormal Lab Results - Last 24 Hours (Table) 08/29/16 08/29/16 Range/Units 07:29 07:29 RBC 3.15 L (3.80-5.40) m/uL Hgb 9.8 L (11.4-16.0) gm/dL Hct 31.7 L (34.0-46.0) % MCV 100.6 H (80.0-100.0) fL MCHC 30.9 L (31.0-37.0) g/dL RDW 15.9 H (11.5-15.5) % Chloride 110 H (98-107) mmol/L BUN 19 H (7-17) mg/dL Assessment and Plan (1) Acute encephalopathy Status: Acute Code(s): G93.40 - ENCEPHALOPATHY, UNSPECIFIED (2) Dementia of the Alzheimer's type Status: Acute Code(s): G30.9 - ALZHEIMER'S DISEASE, UNSPECIFIED; F02.80 - DEMENTIA IN OTH DISEASES CLASSD ELSWHR W/O BEHAVRL DISTURB (3) Acute right arterial ischemic stroke, MCA (middle cerebral artery) Status: Acute Code(s): I63.511 - CEREB INFRC D/T UNSP OCCLS OR STENOS OF RIGHT MID CEREB ART (4) Paroxysmal a-fib Status: Acute Code(s): I48.0 - PAROXYSMAL ATRIAL FIBRILLATION Plan: This patient is a 86-year-old female who is being evaluated today for acute left -sided arm weakness and slurred speech. Patient was initially admitted to Hospital on 08/25/2016 for acute urinary tract infection and hallucinations. She has a history of mild dementia. Today she was noted to have left arm weakness. She does have a history of chronic atrial fibrillation but is not a candidate for anticoagulation and she has a bleeding disorder. We have recommended the patient to undergo an MRI of the brain for further evaluation. She had a computed tomography scan of the brain today which failed to reveal any acute changes. We would recommend a carotid Doppler ultrasound as well as this has not been done recently. Her overall prognosis at this time remains very guarded. We have recommended a complete stroke evaluation for the patient. Case was discussed at length with the patient's family member at bedside today. All of their questions were answered. Patient was able to complete MRI of the brain today. MRI fails to reveal any evidence of acute stroke. MRI does reveal moderate to severe degree of white matter ischemic changes suggesting vascular dementia as a possible diagnosis. Case was discussed at length with the patient's daughter at bedside. The results of the MRI were reviewed. Family is now considering whether to place the patient in hospice care. Overall prognosis at this time remains very guarded. She also has underlying encephalopathy with worsening dementia symptoms. We will continue to monitor her progress closely during this admission. Overall prognosis as noted remains very guarded.
[2016-08-29] MEDS: QUEtiapine 25 MG TAB PO SCH (20:08)
[2016-08-30] MEDS: CYANOCOBALAMIN 500 MCG TAB PO SCH (09:20)
[2016-08-30] MEDS: CHOLECALCIFEROL 1,000 UNIT TAB PO SCH (09:20)
[2016-08-30] MEDS: LISINOPRIL 2.5 MG TAB PO SCH (09:59)
[2016-08-30] MEDS: CITALOPRAM HYDROBROMIDE 20 MG TAB PO SCH (09:59)
[2016-08-30] MEDS: FAMOTIDINE 20 MG TAB PO SCH (09:59)
[2016-08-30] MEDS: METOPROLOL TARTRATE 12.5 MG TAB PO SCH ×2 (09:59→20:30)
[2016-08-30] MEDS: GABAPENTIN 300 MG CAP PO SCH ×2 (09:59→20:30)
[2016-08-30] MEDS: MULTIVITAMINS, THERA 1 EACH TAB PO SCH (10:00)
[2016-08-30] MEDS: SODIUM CHLORIDE 0.9% 1,000 ML IV SCH (10:01)
--- NOTE | 2016-08-30 12:28 | P.PN ---
Subjective Principal diagnosis: Altered mental status Patient is an 86-year-old white female admitted with evidence of increased confusion with hallucinations, possible urinary tract infection, possible congestive heart failure with elevated BNP and complaints of gagging secondary to unrepairable hiatal hernia. Patient did have evidence of acute left upper and lower extremity weakness with CT of brain on MRI negative for acute CVA. Consults were requested for cardiology, neurology, and psychiatry. This morning , patient is sitting up in bed. Patient is more awake and alert than yesterday. Patient's speech is still very difficult to understand. When asked to lift her left arm, patient uses her right arm to lift it. Patient denies headache, chills, fevers, nausea, vomiting, shortness of breath, chest pain, or abdominal pain. Family is at bedside. Plan is for patient to be discharged home with hospice tomorrow. Objective - Vital Signs Vital signs: Vital Signs Temp 97.9 F 08/30/16 07:00 Pulse 93 08/30/16 07:00 Resp 16 08/30/16 07:00 BP 161/78 08/30/16 07:00 Pulse Ox 100 08/30/16 07:00 Intake & Output 08/29/16 08/30/16 08/30/16 18:59 06:59 18:59 Intake Total 160 690 Output Total 100 Balance 60 690 Weight 62 kg 59 kg Intake: Intake, IV Titration 160 Amount Sodium Chloride 0.9% 1, 160 000 ml @ 20 mls/hr IV . Q24H [facility] Rx#:[id number] Oral 690 Output: Urine 100 Other: Voiding Method Bedside Commode Bedpan Bedpan Diaper Diaper Diaper # Voids 1 1 # Bowel Movements 1 1 - Exam GENERAL: Pt awake and alert, lying in bed, appears in no acute distress. HEAD: Atraumatic, normocephalic. EYES: Pupils equal, round, and reactive to light, extraocular movements intact, sclera anicteric, conjunctiva are normal. ENT: Dry mucous membranes. NECK:Normal range of motion, supple without lymphadenopathy or JVD. LUNGS: Breath sounds diminished to auscultation bilaterally. No wheezes, rales , or rhonchi. HEART: Heart S1, S2, no S3 or S4. Irregularly irregular. No murmurs, rubs or gallops. ABDOMEN: Soft, nontender, nondistended, normoactive bowel sounds. No guarding, no rebound. No masses or organomegaly appreciated. EXTREMITIES: Palpable peripheral pulses. 1+ edema to bilateral lower extremities. No calf tenderness. Decreased strength to upper and lower left extremity NEUROLOGICAL: Pt oriented to person. Disoriented to place and time. PSYCH: Poor insight. Poor judgment. SKIN: Warm, dry, intact. Normal turgor. No rashes or lesions. - Labs CBC & Chem 7: 08/29/16 07:29 08/29/16 07:29 Assessment and Plan Plan: Impression and plan: 1. Acute encephalopathy, present on admission, etiology undetermined with history of Alzheimer's dementia with visual hallucinations. EEG pending. 4. Hiatal hernia with progressive problems with gagging and dysphagia. Continue diet recommended by speech therapy, maintain aspiration precautions. 5. Persistent atrial fibrillation, ventricular rate controlled. Patient is not on any anticoagulation secondary to history of GI bleed. 6. Shortness of breath, present on admission, suspect secondary to acute systolic heart failure. Cardiology has seen and evaluated patient, recommendations noted. 7. Hypertension. 8. History of lung cancer with left lower lobectomy. 9. History of Mnire's disease. 10. History of nicotine dependence. 11. Gait dysfunction. Patient uses walker at home. Continue physical therapy. 12. Acute on chronic left-sided weakness suspect, CVA ruled out. Neurology has seen and evaluated patient, recommendations noted. 12. DVT prophylaxis. Continue FELISA hose to bilateral lower extremities. 13. GI prophylaxis. Continue Pepcid. Plan is for patient to be discharged home with hospice tomorrow. The above impression and plan have been discussed and directed by Dr. Ward. Sparkle ALY acting as scribe for Dr. Ward.
--- NOTE | 2016-08-30 12:45 | CDI ---
In responding to this query, please exercise your independent professional judgment. The [facility] Coding Staff and Clinical Documentation Specialists appreciate your assistance in clarifying documentation, maintaining compliance with coding guidelines, accurately documenting patients condition and capturing severity of illness. The fact that a question is asked does not imply that any particular answer is desired or expected. Communication forms are a method of clarifying documentation and are not made part of the Legal Health Record. Thank you in advance for your clarification. Last Revision, April 2015 Dana Winters [address] [place] [address] Documentation Clarification Form Date: 08/30/2016 12:12:00 PM From: Marissa Prieto Admit Date: 08/25/2016 9:21:00 PM Patient Name: Annmarie Connolly Visit Number: [id number] Discharge Date: Dr. Roosevelt Elder Consult and progress note on 08/28/16 has acute right arterial ischemic stroke, MCA. Patient history/risk factors: Alzheimer's dementia, Lung cancer, Persistent atrial fibrillation, Meniere's disease, Systolic heart failure Clinical Indicators: ED for evaluation of shortness of breath, nausea and hallucinations and increased agitation. 08/28/16 nursing noted 2 person assist and she was dragging her left foot. Her left arm is weaker than her right arm. CT Brain: Atrophy with periventricular white matter ischemic changes. Findings are stable from comparison MRI: No acute intracranial abnormality seen, Moderate cerebral atrophy and second ex vacuo ventriculomegaly. Moderate chronic small vessel ischemic disease. Vital Signs: 115/77 92 16 97.3 98 % 2/L NC Treatment: Neurovascular assessment per protocol In your professional opinion, can you please clarify acute right arterial ischemic stroke? Stroke Ruled in Stroke Ruled out Other (Specify) Unable to determine Please document in your progress notes in order to capture severity of illness and risk of mortality. Include clinical findings that support your diagnosis. FYI: Press F11 to launch patient chart. Place X here if this finding has no clinical significance, is not applicable or if you are not able to provide any additional documentation. MTDD
[2016-08-30 14:18] VITALS: BMI 21.6
[2016-08-30] MEDS: QUEtiapine 25 MG TAB PO SCH (20:30)
--- NOTE | 2016-08-30 20:36 | P.PN ---
Subjective This patient is a 86-year-old female who was seen in neurology consultation yesterday for confusion and left-sided weakness. She was sent for MRI of the brain for further evaluation for acute stroke. MRI of the brain failed to reveal any evidence of acute stroke on diffusion-weighted imaging. MRI does reveal severe white matter ischemic changes as well as cortical atrophy. There was moderate to severe white matter changes suggesting vascular form of dementia for this patient. She was seen by psychiatry yesterday who also feels she has underlying dementia and delirium which is multifactorial. The patient was started on Seroquel as per the recommendations of psychiatry. Patient continues to have episodes of confusion today as well. The results of the MRI of the brain was discussed today with the patient's daughter. Apparently the family is now considering hospice care for this patient at the time of discharge. Patient is more comfortable today and seems to be slightly more awake and alert. As mentioned she likely has some degree of early vascular dementia contributing to her overall confusional state. Patient is sleeping this evening but is easily arousable. She still seems to be confused at times. Were waiting further recommendations from family regarding long-term discharge plan. We will continue close neurological follow-up for this patient during this admission. Her overall prognosis at this time remains guarded. Objective - Vital Signs Vital signs: Vital Signs Temp 97.6 F 08/30/16 15:00 Pulse 89 08/30/16 15:00 Resp 16 08/30/16 15:00 BP 148/80 08/30/16 15:00 Pulse Ox 98 08/30/16 15:00 Intake & Output 08/29/16 08/30/16 08/30/16 18:59 06:59 18:59 Intake Total 160 690 160 Output Total 100 100 Balance 60 690 60 Weight 62 kg 59 kg 59 kg Intake: Intake, IV Titration 160 160 Amount Sodium Chloride 0.9% 1, 160 160 000 ml @ 20 mls/hr IV . Q24H [facility] Rx#:[id number] Oral 690 Output: Urine 100 100 Other: Voiding Method Bedside Commode Bedpan Bedpan Diaper Diaper Diaper # Voids 1 1 1 # Bowel Movements 1 1 - Exam Physical examination: PHYSICAL EXAMINATION: Patient is resting comfortably in bed. VITAL SIGNS: Blood pressure is [148/80]. Heart rate is [89]. Respiration is [16] . Temperature is [97.7]. HEENT: Head is atraumatic, neck is supple, there were no carotid bruits. CHEST: Lungs are clear to auscultation and percussion. CARDIAC: S1, S2 normal rate and rhythm. There is no murmur. ABDOMEN: Soft and nontender. Bowel sounds are present. EXTREMITIES: There is no pedal edema. Peripheral pulses are present. Neurological examination: Patient's neurological examination is unchanged from yesterday. - Labs CBC & Chem 7: 08/29/16 07:29 08/29/16 07:29 Assessment and Plan (1) Acute encephalopathy Status: Acute Code(s): G93.40 - ENCEPHALOPATHY, UNSPECIFIED (2) Dementia of the Alzheimer's type Status: Acute Code(s): G30.9 - ALZHEIMER'S DISEASE, UNSPECIFIED; F02.80 - DEMENTIA IN OTH DISEASES CLASSD ELSWHR W/O BEHAVRL DISTURB (3) Acute right arterial ischemic stroke, MCA (middle cerebral artery) Status: Acute Code(s): I63.511 - CEREB INFRC D/T UNSP OCCLS OR STENOS OF RIGHT MID CEREB ART (4) Paroxysmal a-fib Status: Acute Code(s): I48.0 - PAROXYSMAL ATRIAL FIBRILLATION Plan: This patient is a 86-year-old female who is being evaluated today for acute left -sided arm weakness and slurred speech. Patient was initially admitted to Hospital on 08/25/2016 for acute urinary tract infection and hallucinations. She has a history of mild dementia. Today she was noted to have left arm weakness. She does have a history of chronic atrial fibrillation but is not a candidate for anticoagulation and she has a bleeding disorder. We have recommended the patient to undergo an MRI of the brain for further evaluation. She had a computed tomography scan of the brain today which failed to reveal any acute changes. We would recommend a carotid Doppler ultrasound as well as this has not been done recently. Her overall prognosis at this time remains very guarded. We have recommended a complete stroke evaluation for the patient. Case was discussed at length with the patient's family member at bedside today. All of their questions were answered. Patient was able to complete MRI of the brain today. MRI fails to reveal any evidence of acute stroke. MRI does reveal moderate to severe degree of white matter ischemic changes suggesting vascular dementia as a possible diagnosis. Case was discussed at length with the patient's daughter at bedside. The results of the MRI were reviewed. Family is now considering whether to place the patient in hospice care. Patient remains lethargic today but is arousable. We're waiting further recommendations from family regarding long-term care and management for this patient. Overall prognosis at this time remains very guarded. She also has underlying encephalopathy with worsening dementia symptoms. We will continue to monitor her progress closely during this admission. Overall prognosis as noted remains very guarded.
[2016-08-31 07:50] VITALS: BP 134/70; PULSE 89; TEMP 98.4
[2016-08-31] MEDS: MULTIVITAMINS, THERA 1 EACH TAB PO SCH (08:07)
[2016-08-31] MEDS: GABAPENTIN 300 MG CAP PO SCH (08:07)
[2016-08-31] MEDS: LISINOPRIL 2.5 MG TAB PO SCH (08:07)
[2016-08-31] MEDS: FAMOTIDINE 20 MG TAB PO SCH (08:07)
[2016-08-31] MEDS: METOPROLOL TARTRATE 12.5 MG TAB PO SCH (08:07)
[2016-08-31] MEDS: CYANOCOBALAMIN 500 MCG TAB PO SCH (08:07)
[2016-08-31] MEDS: CHOLECALCIFEROL 1,000 UNIT TAB PO SCH (08:07)
[2016-08-31] MEDS ORDERED: ESCITALOPRAM 20 MG TAB PO SCH (09:00)
[2016-08-31] MEDS: SODIUM CHLORIDE 0.9% 1,000 ML IV SCH (11:18)
--- NOTE | 2016-08-31 12:39 | P.DS ---
Providers Date of admission: 08/25/16 21:21 Expected date of discharge: 08/31/16 Attending physician: Sloan Ward Consults: 08/27/16 08:21 Consult Physician Urgent Consulting Provider: Augustin Silva Consult Reason/Comments: chf Do you want consulting provider notified?: Yes 08/27/16 08:22 Consult Physician Urgent Consulting Provider: Joe Roque Consult Reason/Comments: hallucinations Do you want consulting provider notified?: Yes 08/28/16 11:46 Consult Physician Urgent Consulting Provider: Roosevelt Elder Consult Reason/Comments: left sided weakness Do you want consulting provider notified?: Yes Primary care physician: Sloan Ward Hospital Course: Patient is an 86-year-old white female admitted with evidence of increased confusion with hallucinations, possible urinary tract infection, possible congestive heart failure with elevated BNP and complaints of gagging secondary to unrepairable hiatal hernia. Patient did have evidence of acute left upper and lower extremity weakness with CT of brain and MRI negative for acute CVA. During her hospital stay, patient was evaluated by cardiology, neurology, and psychiatry. Patient was also seen by speech therapy. A hospice consult was initiated per family request and plans were arranged for patient to be discharged home with hospice. Discharge diagnoses: 1. Acute encephalopathy, present on admission, etiology undetermined with history of Alzheimer's dementia with visual hallucinations. 4. Hiatal hernia with progressive problems with gagging and dysphagia. 5. Persistent atrial fibrillation, ventricular rate controlled. Patient is not on any anticoagulation secondary to history of GI bleed. 6. Shortness of breath, present on admission, suspect secondary to acute systolic heart failure. 7. Hypertension. 8. History of lung cancer with left lower lobectomy. 9. History of Mnire's disease. 10. History of nicotine dependence. 11. Gait dysfunction. Patient uses walker at home. Continue physical therapy. 12. Acute on chronic left-sided weakness, CVA ruled out. The above impression and plan have been discussed and directed by Dr. Ward. Sparkle ALY acting as scribe for Dr. Ward. Pertinent Studies: Chest x-ray; EKG; echocardiogram with Doppler; brain CT; brain MRI; carotid Doppler study Patient Condition at Discharge: Stable Plan - Discharge Summary New Discharge Prescriptions: Atropine Ophth Soln 1% 5Ml [Isopto Atropine 1% 5Ml] 2 drops SL Q4H PRN #1 bottle PRN Reason: Secretions LORazepam ORAL CONC [Ativan Intensol] 1 - 2 mg PO Q3H PRN #30 ml PRN Reason: Anxiety Lisinopril [Zestril] 2.5 mg PO DAILY #30 tab Metoprolol Tartrate [Lopressor] 12.5 mg PO BID #60 tab Morphine Oral Soln [Roxanol Oral Soln Conc 20MG/ML] 5 mg PO Q4H PRN #30 ml PRN Reason: Pain Discharge Medication List Cholecalciferol [Vitamin D3] 2,000 unit PO DAILY 01/24/16 [History] Multivit-Min/FA/Lycopene/Lut [Centrum Silver Tablet] 1 tab PO DAILY 01/24/16 [ History] Cyanocobalamin (Vitamin B-12) [Vitamin B-12] 1,000 mcg PO DAILY 08/25/16 [ History] Gabapentin [Neurontin] 300 mg PO BID 08/25/16 [History] Ibuprofen [Motrin] 800 mg PO Q6H PRN 08/25/16 [History] SUMAtriptan SUCCINATE [Imitrex] 50 mg PO DAILY PRN 08/25/16 [History] QUEtiapine [SEROquel] 25 mg PO HS 08/27/16 [History] Atropine Ophth Soln 1% 5Ml [Isopto Atropine 1% 5Ml] 2 drops SL Q4H PRN #1 bottle 08/30/16 [Rx] Escitalopram [Lexapro] 20 mg PO DAILY 08/30/16 [History] LORazepam ORAL CONC [Ativan Intensol] 1 - 2 mg PO Q3H PRN #30 ml 08/30/16 [Rx] Lisinopril [Zestril] 2.5 mg PO DAILY #30 tab 08/30/16 [Rx] Metoprolol Tartrate [Lopressor] 12.5 mg PO BID #60 tab 08/30/16 [Rx] Morphine Oral Soln [Roxanol Oral Soln Conc 20MG/ML] 5 mg PO Q4H PRN #30 ml 08/30 [Rx] Follow up Appointment(s)/Referral(s): Sloan Ward DO [Primary Care Provider] - As Needed Activity/Diet/Wound Care/Special Instructions: Diet: Dental soft foods. Aspiration precautions. 1:1 supervision. [place] thick liquids. No straws. Discharge Disposition: HOME WITH HOSPICE
--- NOTE | 2016-09-03 08:51 | EEG ---
DATE OF SERVICE: 08/30/2016 INDICATIONS FOR EXAMINATION: This patient is an 86 -year-old female being evaluated for TIA and stroke. The patient presented with left sided weakness and increased confusion. AGE: 86Y EEG FINDINGS: A routine 21 channel awake digital EEG recording was accomplished utilizing the 10-20 international system with bipolar and referential montages. The background activity in the most alert resting state consists of a low to medium amplitude, poorly developed and poorly sustained 6 Hz activity over the posterior head regions. This posterior rhythm attenuates to eye opening. There is a small amount of low amplitude 18-20 Hz beta activity seen maximally over the anterior head regions. Muscle and movement artifacts were observed on a few occasions during the tracing. Hyperventilation was not performed. Photic stimulation at flash frequencies of 2-30 Hz produced a good symmetrical occipital driving response. No epileptiform discharges were seen. IMPRESSION: This EEG is moderately abnormal in a diffuse fashion due to slowing of the EEG background. The EEG failed to reveal any focal, lateralized or epileptiform abnormalities. Clinical correlation is recommended.
== END 2016-08-31 11:45 | disposition hospice, home (50) | DRG 291 ==
LOC: EC 18:48 → 5MS5E 21:21
PROVIDERS: ADMIT Family Medicine; ATTEND Family Medicine
DX: I11.0 Hypertensive heart disease with heart failure (principal); G93.40 Encephalopathy, unspecified; I48.1 Persistent atrial fibrillation; I42.9 Cardiomyopathy, unspecified; J44.9 Chronic obstructive pulmonary disease, unspecified; R13.10 Dysphagia, unspecified; N39.0 Urinary tract infection, site not specified; G30.9 Alzheimer's disease, unspecified; F01.50 Vascular dementia, unspecified severity, without behavioral disturbance, psychotic disturbance, mood disturbance, and anxiety; F02.80 Dementia in other diseases classified elsewhere, unspecified severity, without behavioral disturbance, psychotic disturbance, mood disturbance, and anxiety; K44.9 Diaphragmatic hernia without obstruction or gangrene; I50.21 Acute systolic (congestive) heart failure; E87.6 Hypokalemia; R26.9 Unspecified abnormalities of gait and mobility; H81.09 Meniere's disease, unspecified ear; Z85.118 Personal history of other malignant neoplasm of bronchus and lung; Z87.891 Personal history of nicotine dependence; Z91.041 Radiographic dye allergy status; Z88.0 Allergy status to penicillin; Z91.013 Allergy to seafood; Z96.619 Presence of unspecified artificial shoulder joint; Z79.899 Other long term (current) drug therapy
CPT/HCPCS: 36415; 70450; 70551; 71020; 80048; 80053; 81001; 82150; 82550; 82553; 83690; 83735; 83880; 84100; 84132; 84484; 85025; 85027; 85610; 85730; 87086; 93005; 93306; 93880; 95816; 96361; 96365; 96366; 99285